=== PATIENT | male | born 1945 | race Caucasian/White ===

== ENCOUNTER → 2016-11-23 | Outpatient (CLI) | payer MEDICARE, OTHER ==
[2016-11-23 08:47] LABS: CHCM 33.4; HCT 41.4 % (39.0-53.0); HDW 2.24; HGB 13.7 gm/dL (13.0-17.5); MCHC 33.2 g/dL (31.0-37.0); MCV 99.3 fL (80.0-100.0); Mean Platelet Volume 8.2; RBC 4.17 m/uL (4.30-5.90); RDW 13.1 % (11.5-15.5); WBC 5.8 k/uL (3.8-10.6)
[2016-11-23 10:53] LABS: ALT 32 U/L (21-72); AST 28 U/L (17-59); Alkaline Phosphatase 82 U/L (38-126); Anion Gap 9 mmol/L; Bilirubin, Delta 0.3 mg/dL (0.0-0.2); Blood Urea Nitrogen 22 mg/dL (9-20); Carbon Dioxide 30 mmol/L (22-30); Chloride 102 mmol/L (98-107); Glucose 90 mg/dL (74-99); Non-African American GFR(MDRD) >60 (>60 ml/min/1.73 sqM); Potassium 4.5 mmol/L (3.5-5.1); Sodium 141 mmol/L (137-145); Total Bilirubin 0.5 mg/dL (0.2-1.3); Total Protein 7.5 g/dL (6.3-8.2)
== END | disposition home or self-care (01) ==
LOC: LABWHC1 08:16
PROVIDERS: ATTEND Psychiatry & Neurology Clinical Neurophysiology
DX: R56.9 Unspecified convulsions (principal); Z51.81 Encounter for therapeutic drug level monitoring; Z79.899 Other long term (current) drug therapy
CPT/HCPCS: 36415; 80048; 80076; 80185; 80188; 85027

== ENCOUNTER → 2017-02-25 | Outpatient (CLI) | payer MEDICARE, OTHER | END | disposition home or self-care (01) | LOC: LABWHC1 08:04 | PROVIDERS: ATTEND Family Medicine | DX: G40.909 Epilepsy, unspecified, not intractable, without status epilepticus (principal) | CPT/HCPCS: 36415; 80185; 80188 ==

== ENCOUNTER → 2017-05-24 | Outpatient (CLI) | payer MEDICARE, OTHER ==
[2017-05-24 09:14] LABS: CHCM 32.7; HCT 41.3 % (39.0-53.0); HDW 2.25; HGB 13.9 gm/dL (13.0-17.5); MCHC 33.6 g/dL (31.0-37.0); MCV 98.2 fL (80.0-100.0); Mean Platelet Volume 7.1; RBC 4.21 m/uL (4.30-5.90); RDW 13.2 % (11.5-15.5); WBC 6.7 k/uL (3.8-10.6)
[2017-05-24 09:19] LABS: ALT 31 U/L (21-72); AST 25 U/L (17-59); Alkaline Phosphatase 91 U/L (38-126); Anion Gap 8 mmol/L; Bilirubin, Delta 0.3 mg/dL (0.0-0.2); Blood Urea Nitrogen 20 mg/dL (9-20); Calcium 8.9 mg/dL (8.4-10.2); Carbon Dioxide 30 mmol/L (22-30); Chloride 102 mmol/L (98-107); Glucose 85 mg/dL (74-99); Non-African American GFR(MDRD) >60 (>60 ml/min/1.73 sqM); Potassium 4.3 mmol/L (3.5-5.1); Sodium 140 mmol/L (137-145); Total Bilirubin 0.5 mg/dL (0.2-1.3); Total Protein 7.3 g/dL (6.3-8.2)
== END ==
LOC: LABWHC1 08:26
PROVIDERS: ATTEND Psychiatry & Neurology Clinical Neurophysiology
DX: R56.9 Unspecified convulsions (principal); Z51.81 Encounter for therapeutic drug level monitoring
CPT/HCPCS: 36415; 80048; 80076; 80185; 85027

== ENCOUNTER → 2017-05-26 | Outpatient (CLI) | payer MEDICARE, OTHER ==
[2017-05-27 16:12] LABS: Mis test requested (Blood) MYSOLINE (PRIMIDONE)
== END | disposition home or self-care (01) ==
LOC: LABWHC1 08:29
PROVIDERS: ATTEND Psychiatry & Neurology Clinical Neurophysiology
DX: R56.9 Unspecified convulsions (principal); Z79.899 Other long term (current) drug therapy
CPT/HCPCS: 80188

== ENCOUNTER → 2017-08-05 | Outpatient (CLI) | payer MEDICARE, OTHER | END | disposition home or self-care (01) | LOC: LABWHC1 08:19 | PROVIDERS: ATTEND Family Medicine | DX: R56.9 Unspecified convulsions (principal) | CPT/HCPCS: 36415; 80184; 80185; 80188 ==

== ENCOUNTER → 2017-11-25 | Outpatient (CLI) | payer MEDICARE, OTHER ==
[2017-11-25 09:02] LABS: HCT 40.5 % (39.0-53.0); HGB 13.7 gm/dL (13.0-17.5); MCH 32.2 pg (25.0-35.0); MCHC 33.8 g/dL (31.0-37.0); MCV 95.2 fL (80.0-100.0); Mean Platelet Volume 7.8; Platelet Count 198 k/uL (150-450); RBC 4.25 m/uL (4.30-5.90); RDW 13.3 % (11.5-15.5); WBC 6.5 k/uL (3.8-10.6)
[2017-11-25 09:23] LABS: ALT 17 U/L (21-72); AST 25 U/L (17-59); Albumin 3.8 g/dL (3.5-5.0); Alkaline Phosphatase 86 U/L (38-126); Anion Gap 8 mmol/L; Bilirubin, Delta 0.3 mg/dL (0.0-0.2); Blood Urea Nitrogen 20 mg/dL (9-20); Calcium 9.3 mg/dL (8.4-10.2); Carbon Dioxide 33 mmol/L (22-30); Chloride 102 mmol/L (98-107); Glucose 82 mg/dL (74-99); Phenytoin (Dilantin) 9.5 ug/mL; Potassium 5.5 mmol/L (3.5-5.1); Sodium 143 mmol/L (137-145); Total Bilirubin 0.3 mg/dL (0.2-1.3); Total Protein 7.4 g/dL (6.3-8.2)
== END | disposition home or self-care (01) ==
LOC: LABWHC1 08:09
PROVIDERS: ATTEND Psychiatry & Neurology Clinical Neurophysiology
DX: D64.9 Anemia, unspecified (principal); R56.9 Unspecified convulsions
CPT/HCPCS: 36415; 80048; 80076; 80185; 80188; 85027

== ENCOUNTER → 2018-02-16 | Outpatient (CLI) | payer MEDICARE, OTHER ==
[2018-02-17 14:52] LABS: Primidone 5.7 ug/mL (4-12)
== END | disposition home or self-care (01) ==
LOC: LABWHC1 08:07
PROVIDERS: ATTEND Family Medicine
DX: G40.909 Epilepsy, unspecified, not intractable, without status epilepticus (principal)
CPT/HCPCS: 36415; 80184; 80185; 80186; 80188

== ENCOUNTER → 2018-08-15 | Outpatient (CLI) | payer MEDICARE, OTHER | END | disposition home or self-care (01) | LOC: LABWHC1 08:26 | PROVIDERS: ATTEND Family Medicine | DX: G40.909 Epilepsy, unspecified, not intractable, without status epilepticus (principal) | CPT/HCPCS: 36415; 80184; 80185; 80188 ==

== ENCOUNTER → 2018-11-24 | Outpatient (CLI) | payer MEDICARE, OTHER ==
[2018-11-24 09:05] LABS: Basophils % (A) 0 %; Eosinophils # (A) 0.6 k/uL (0-0.7); Eosinophils % (A) 7 %; HCT 45.8 % (39.0-53.0); HGB 14.4 gm/dL (13.0-17.5); Lymphocytes # (A) 1.4 k/uL (1.0-4.8); Lymphocytes % (A) 16 %; MCH 30.6 pg (25.0-35.0); MCHC 31.5 g/dL (31.0-37.0); MCV 97.3 fL (80.0-100.0); Mean Platelet Volume 7.5; Monocytes # (A) 0.5 k/uL (0-1.0); Monocytes % (A) 6 %; Neutrophils % (A) 69 %; Platelet Count 186 k/uL (150-450); RBC 4.71 m/uL (4.30-5.90); RDW 13.3 % (11.5-15.5); WBC 8.7 k/uL (3.8-10.6)
[2018-11-24 17:21] LABS: ALT 20 U/L (10-49); AST 31 U/L (14-35); Alkaline Phosphatase 87 U/L (41-126); Bilirubin, Conjugated <0.20 mg/dL (0.20-0.40); Calcium 8.9 mg/dL (8.7-10.3); Carbon Dioxide 29.8 mmol/L (21.6-31.8); Chloride 101 mmol/L (96-109); Glucose 94 mg/dL (70-110); Potassium 4.9 mmol/L (3.5-5.5); Sodium 140 mmol/L (135-145); Total Bilirubin 0.4 mg/dL (0.2-1.2); Total Protein 6.9 g/dL (6.2-8.2)
[2018-11-24 18:37] LABS: Phenytoin (Dilantin) 9.2 ug/mL (10.0-20.0)
[2018-11-25 07:12] LABS: Phenytoin (Dilantin) Free 0.9 ug/mL (0.8-2.0)
[2018-11-26 14:10] LABS: Primidone 6.3 ug/mL (4-12)
== END ==
LOC: LABWHC1 08:25
PROVIDERS: ATTEND Family Medicine
DX: G40.909 Epilepsy, unspecified, not intractable, without status epilepticus (principal); G40.419 Other generalized epilepsy and epileptic syndromes, intractable, without status epilepticus; Z51.81 Encounter for therapeutic drug level monitoring; D64.9 Anemia, unspecified
CPT/HCPCS: 36415; 80053; 80184; 80185; 80186; 80188; 82248; 85025

== ENCOUNTER → 2019-02-13 | Outpatient (CLI) | payer MEDICARE, OTHER | END | disposition home or self-care (01) | LOC: LABWHC1 08:31 | PROVIDERS: ATTEND Family Medicine | DX: G40.909 Epilepsy, unspecified, not intractable, without status epilepticus (principal) | CPT/HCPCS: 36415; 80184; 80188 ==

== ENCOUNTER → 2019-05-25 | Outpatient (CLI) | payer MEDICARE, OTHER ==
[2019-05-25 09:11] LABS: HGB 13.4 gm/dL (13.0-17.5); MCH 31.2 pg (25.0-35.0); MCHC 32.6 g/dL (31.0-37.0); Mean Platelet Volume 6.6; Platelet Count 179 k/uL (150-450); RBC 4.28 m/uL (4.30-5.90); WBC 6.1 k/uL (3.8-10.6)
[2019-05-25 17:36] LABS: African American GFR (CKD) 97.9 (60.0-200.0); Albumin 3.8 g/dL (3.80-4.90); Albumin/Globulin Ratio 1.23 (1.60-3.17); Anion Gap 11.6 mmol/L (4.00-12.00); BUN/Creat Ratio 15.56 Ratio (12.00-20.00); Calcium 8.8 mg/dL (8.7-10.3); Carbon Dioxide 26.4 mmol/L (21.6-31.8); Globulin 3.1 g/dL (1.6-3.3); Potassium 4.2 mmol/L (3.5-5.5); Total Bilirubin 0.2 mg/dL (0.2-1.2); Total Protein 6.9 g/dL (6.2-8.2)
== END | disposition home or self-care (01) ==
LOC: LABWHC1 08:15
PROVIDERS: ATTEND Psychiatry & Neurology Clinical Neurophysiology
DX: D64.9 Anemia, unspecified (principal); G40.419 Other generalized epilepsy and epileptic syndromes, intractable, without status epilepticus; Z51.81 Encounter for therapeutic drug level monitoring
CPT/HCPCS: 36415; 80053; 80185; 80188; 85027

== ENCOUNTER → 2019-08-14 | Outpatient (CLI) | payer MEDICARE, OTHER ==
[2019-08-16 05:55] LABS: Phenytoin (Dilantin) Free 1.2 ug/mL (0.8-2.0)
[2019-08-17 14:44] LABS: Primidone 5.1 ug/mL (4-12)
== END | disposition home or self-care (01) ==
LOC: LABWHC1 09:01
PROVIDERS: ATTEND Family Medicine
DX: G40.909 Epilepsy, unspecified, not intractable, without status epilepticus (principal)
CPT/HCPCS: 36415; 80184; 80185; 80186; 80188

== ENCOUNTER → 2019-11-23 | Outpatient (CLI) | payer MEDICARE, OTHER ==
[2019-11-23 09:48] LABS: HCT 44.8 % (39.0-53.0); HGB 14.7 gm/dL (13.0-17.5); MCH 31.3 pg (25.0-35.0); MCHC 32.7 g/dL (31.0-37.0); MCV 95.6 fL (80.0-100.0); Mean Platelet Volume 7.9; Platelet Count 226 k/uL (150-450); RBC 4.69 m/uL (4.30-5.90); WBC 8.3 k/uL (3.8-10.6)
[2019-11-23 15:58] LABS: African American GFR (CKD) 97.2 (60.0-200.0); Albumin 4.2 g/dL (3.80-4.90); Albumin/Globulin Ratio 1.24 (1.60-3.17); Anion Gap 10.8 mmol/L (4.00-12.00); BUN/Creat Ratio 24.44 Ratio (12.00-20.00); Calcium 9.3 mg/dL (8.7-10.3); Carbon Dioxide 29.2 mmol/L (21.6-31.8); Globulin 3.4 g/dL (1.6-3.3); Non-African American GFR(CKD) 83.8 (60.0-200.0); Potassium 4.2 mmol/L (3.5-5.5); Total Bilirubin 0.3 mg/dL (0.3-1.2); Total Protein 7.6 g/dL (6.2-8.2)
[2019-11-23 20:23] LABS: Phenytoin (Dilantin) 9.4 ug/mL (10.0-20.0)
== END | disposition home or self-care (01) ==
LOC: LABWHC1 09:04
PROVIDERS: ATTEND Psychiatry & Neurology Clinical Neurophysiology
DX: G40.419 Other generalized epilepsy and epileptic syndromes, intractable, without status epilepticus (principal); D64.9 Anemia, unspecified; Z51.81 Encounter for therapeutic drug level monitoring
CPT/HCPCS: 36415; 80053; 80185; 80188; 85027

== ENCOUNTER → 2020-02-15 | Outpatient (CLI) | payer MEDICARE, OTHER ==
[2020-02-21 08:56] LABS: Primidone 6.1 ug/mL (4-12)
== END | disposition home or self-care (01) ==
LOC: LABWHC1 08:53
PROVIDERS: ATTEND Family Medicine
DX: G40.909 Epilepsy, unspecified, not intractable, without status epilepticus (principal)
CPT/HCPCS: 36415; 80184; 80185; 80186; 80188

== ENCOUNTER → 2020-05-23 | Outpatient (CLI) | payer MEDICARE, OTHER ==
[2020-05-23 09:43] LABS: Basophils # (A) 0.1 k/uL (0-0.2); Basophils % (A) 1 %; Eosinophils % (A) 14 %; HCT 48.1 % (39.0-53.0); HGB 15.1 gm/dL (13.0-17.5); Lymphocytes # (A) 2.2 k/uL (1.0-4.8); Lymphocytes % (A) 30 %; MCH 30.7 pg (25.0-35.0); MCHC 31.4 g/dL (31.0-37.0); MCV 97.9 fL (80.0-100.0); Mean Platelet Volume 7.6; Monocytes # (A) 0.6 k/uL (0-1.0); Monocytes % (A) 8 %; Neutrophils # (A) 3.4 k/uL (1.3-7.7); Neutrophils % (A) 45 %; Platelet Count 223 k/uL (150-450); RBC 4.91 m/uL (4.30-5.90); RDW 12.8 % (11.5-15.5); WBC 7.5 k/uL (3.8-10.6)
[2020-05-23 19:24] LABS: African American GFR (CKD) 97.2 (60.0-200.0); Albumin 4.1 g/dL (3.80-4.90); Albumin/Globulin Ratio 1.46 (1.60-3.17); Anion Gap 6.2 mmol/L (4.00-12.00); BUN/Creat Ratio 15.56 Ratio (12.00-20.00); Carbon Dioxide 29.8 mmol/L (21.6-31.8); Globulin 2.8 g/dL (1.6-3.3); Non-African American GFR(CKD) 83.8 (60.0-200.0); Potassium 4.4 mmol/L (3.5-5.5); Total Bilirubin 0.2 mg/dL (0.2-1.2); Total Protein 6.9 g/dL (6.2-8.2)
== END | disposition home or self-care (01) ==
LOC: LABWHC1 08:38
PROVIDERS: ATTEND Psychiatry & Neurology Clinical Neurophysiology
DX: D50.9 Iron deficiency anemia, unspecified (principal); G40.89 Other seizures; R94.5 Abnormal results of liver function studies; R94.4 Abnormal results of kidney function studies; Z51.81 Encounter for therapeutic drug level monitoring
CPT/HCPCS: 36415; 80053; 80185; 80188; 85025

== ENCOUNTER → 2020-08-16 | Outpatient (CLI) | payer MEDICARE, OTHER ==
[2020-08-16 17:08] LABS: ALT 16 U/L (10-49); AST 26 U/L (14-35); Albumin/Globulin Ratio 1.29 (1.60-3.17); Alkaline Phosphatase 98 U/L (41-126); Bilirubin, Conjugated <0.20 mg/dL (0.20-0.40); Globulin 3.1 g/dL (1.6-3.3); Total Bilirubin 0.2 mg/dL (0.2-1.2); Total Protein 7.1 g/dL (6.2-8.2)
[2020-08-16 17:22] LABS: Phenytoin (Dilantin) 10.5 ug/mL (10.0-20.0)
[2020-08-17 15:04] LABS: Primidone 6.4 ug/mL (4-12)
== END | disposition home or self-care (01) ==
LOC: LABWHC1 08:22
PROVIDERS: ATTEND Family Medicine
DX: G40.909 Epilepsy, unspecified, not intractable, without status epilepticus (principal)
CPT/HCPCS: 36415; 80076; 80184; 80185; 80188

== ENCOUNTER → 2020-11-21 | Outpatient (CLI) | payer MEDICARE, OTHER ==
[2020-11-21 15:12] LABS: HCT 44.2 % (39.6-50.0); HGB 14.2 g/dL (13.0-17.0); MCH 31.3 pg (27.0-32.0); MCHC 32.1 g/dL (32.0-37.0); MCV 97.4 fL (80.0-97.0); Mean Platelet Volume 10.3 fL (9.5-12.2); Platelet Count 198 X 10*3/uL (140-440); RBC 4.54 X 10*6/uL (4.40-5.60); RDW 13.2 % (11.5-14.5); WBC 6.67 X 10*3/uL (4.50-10.00)
[2020-11-21 16:14] LABS: African American GFR (CKD) 96.5 (60.0-200.0); Albumin 4.1 g/dL (3.80-4.90); Albumin/Globulin Ratio 1.28 (1.60-3.17); Anion Gap 9.9 mmol/L (4.00-12.00); BUN/Creat Ratio 17.78 Ratio (12.00-20.00); Calcium 9.4 mg/dL (8.7-10.3); Carbon Dioxide 27.1 mmol/L (21.6-31.8); Globulin 3.2 g/dL (1.6-3.3); Non-African American GFR(CKD) 83.3 (60.0-200.0); Potassium 4.6 mmol/L (3.5-5.5); Total Bilirubin 0.2 mg/dL (0.3-1.2); Total Protein 7.3 g/dL (6.2-8.2)
[2020-11-22 02:49] LABS: Phenytoin (Dilantin) 11.6 ug/mL (10.0-20.0)
== END | disposition home or self-care (01) ==
LOC: LABWHC1 09:08
PROVIDERS: ATTEND Psychiatry & Neurology Clinical Neurophysiology
DX: G40.419 Other generalized epilepsy and epileptic syndromes, intractable, without status epilepticus (principal); D64.9 Anemia, unspecified; Z51.81 Encounter for therapeutic drug level monitoring
CPT/HCPCS: 36415; 80053; 80185; 80188; 85027

== ENCOUNTER 2020-12-20 11:56 | Inpatient (IN) | payer MEDICARE, OTHER ==
[2020-12-20] MEDS ORDERED: ALBUTEROL HFA INHALER INHALATION STA (13:57)
--- NOTE | 2020-12-20 14:00 | ED ---
General Adult HPI - General Source: patient, family, RN notes reviewed Mode of arrival: ambulatory Limitations: altered mental status, physical limitation <Osmani Wu - Last Filed: 12/20/20 14:30> <Jeff Vera - Last Filed: 12/20/20 17:20> - General Chief complaint: Shortness of Breath Stated complaint: low oxygen Time Seen by Provider: 12/20/20 13:21 - History of Present Illness Initial comments: Patient is a pleasant 75-year-old male presenting to the emergency Department with cough and dyspnea. Onset of symptoms was 2-3 days ago. Patient does have history of similar symptoms previously associated with pneumonia. Patient is a poor historian and history is taken from sister who is also caterpillar tractor operator. No reported fevers. Patient is eating and drinking normally. Patient is unable to provide significant history. Patient does have history of anoxia and seizures. (Osmani Wu) - Related Data Allergies Allergy/AdvReac Type Severity Reaction Status Date / Time azithromycin [From Zithromax] Allergy Unknown Verified 12/20/20 16:12 codeine Allergy Unknown Verified 12/20/20 16:12 Review of Systems ROS Other: All systems not noted in ROS Statement are negative. Limitations: ROS unobtainable due to patients medical condition Constitutional: Denies: fever Respiratory: Reports: cough, dyspnea <Osmani Wu - Last Filed: 12/20/20 14:30> ROS Other: All systems not noted in ROS Statement are negative. <Jeff Vera - Last Filed: 12/20/20 17:20> ROS Statement: Those systems with pertinent positive or pertinent negative responses have been documented in the HPI. Past Medical History Additional Past Medical History / Comment(s): encephalitis. mental impairment History of Any Multi-Drug Resistant Organisms: None Reported Past Surgical History: Cholecystectomy Past Psychological History: No Psychological Hx Reported Smoking Status: Current every day smoker Past Alcohol Use History: None Reported Past Drug Use History: None Reported <Osmani Wu - Last Filed: 12/20/20 14:30> General Exam Limitations: altered mental status, physical limitation General appearance: alert, in no apparent distress Eye exam: Present: normal appearance Neck exam: Present: normal inspection Respiratory exam: Present: rales Cardiovascular Exam: Present: regular rate, normal rhythm GI/Abdominal exam: Present: soft. Absent: tenderness Neurological exam: Present: alert Psychiatric exam: Present: normal affect, normal mood Skin exam: Present: normal color <Osmani Wu - Last Filed: 12/20/20 14:30> Course Vital Signs 12/20/20 12/20/20 12/20/20 12:27 14:50 17:02 Temperature 98.0 F Pulse Rate 67 72 Respiratory 20 22 18 Rate Blood Pressure 156/93 141/80 O2 Sat by Pulse 91 L 95 Oximetry EKG Findings - EKG Comments: EKG Findings:: Sinus bradycardia 59. WA 180. QRS 96. QT 434. QTC 429. Normal axis. Normal QRS. No acute ST change. <Osmani Wu - Last Filed: 12/20/20 14:30> Medical Decision Making - Lab Data Result diagrams: 12/20/20 14:49 12/20/20 14:49 <Jeff Vera - Last Filed: 12/20/20 17:20> - Medical Decision Making Patient's care was signed out at shift change awaiting workup. X-ray showing concern for possible coronavirus pneumonia although the patient has been vaccinated. His coronavirus test is negative. He has a normal CBC. CMP showing a L of a CO2 of 31. He does have an elevated troponin 0.065 with a normal BNP. CT angiography is performed to rule out pulmonary embolism which is negative. The patient is unable to contribute significantly to history but does deny chest pain is EKG is sinus bradycardia without ST segment elevation. Given the findings on x-ray a single dose of antibiotics is administered in the emergency department awaiting further evaluation and treatment. He will be admitted to Dr. Ni with cardiology on consult. (Jeff Vera) - Lab Data Lab Results 12/20/20 12/20/20 12/20/20 Range/Units 14:49 14:49 14:49 WBC 6.5 (3.8-10.6) k/uL RBC 4.53 (4.30-5.90) m/uL Hgb 14.7 (13.0-17.5) gm/dL Hct 42.7 (39.0-53.0) % MCV 94.3 (80.0-100.0) fL MCH 32.4 (25.0-35.0) pg MCHC 34.4 (31.0-37.0) g/dL RDW 13.0 (11.5-15.5) % Plt Count 193 (150-450) k/uL MPV 7.4 Neutrophils % (Manual) 27 % Band Neuts % (Manual) 1 % Lymphocytes % (Manual) 49 % Monocytes % (Manual) 13 % Eosinophils % (Manual) 10 % Neutrophils # (Manual) 1.80 (1.3-7.7) k/uL Lymphocytes # (Manual) 3.19 (1.0-4.8) k/uL Monocytes # (Manual) 0.85 (0-1.0) k/uL Eosinophils # (Manual) 0.65 (0-0.7) k/uL Nucleated RBCs 0 (0-0) /100 WBC Manual Slide Review Performed PT 10.3 (9.0-12.0) sec INR 1.0 (<1.2) APTT 22.8 (22.0-30.0) sec Sodium 137 (137-145) mmol/L Potassium 4.6 (3.5-5.1) mmol/L Chloride 97 L (98-107) mmol/L Carbon Dioxide 34 H (22-30) mmol/L Anion Gap 6 mmol/L BUN 17 (9-20) mg/dL Creatinine 0.85 (0.66-1.25) mg/dL Est GFR (CKD-EPI)AfAm >90 (>60 ml/min/1.73 sqM) Est GFR (CKD-EPI)NonAf 85 (>60 ml/min/1.73 sqM) Glucose 87 (74-99) mg/dL Plasma Lactic Acid Jay (0.7-2.0) mmol/L Calcium 9.0 (8.4-10.2) mg/dL Magnesium 1.9 (1.6-2.3) mg/dL Total Bilirubin 0.2 (0.2-1.3) mg/dL AST 34 (17-59) U/L ALT 19 (4-49) U/L Alkaline Phosphatase 103 (38-126) U/L Lactate Dehydrogenase 568 (313-618) U/L Troponin I (0.000-0.034) ng/mL C-Reactive Protein 41.6 H (<10.0) mg/L NT-Pro-B Natriuret Pep pg/mL Total Protein 8.0 (6.3-8.2) g/dL Albumin 4.0 (3.5-5.0) g/dL Coronavirus (PCR) (Not Detectd) 12/20/20 12/20/20 12/20/20 Range/Units 14:49 14:49 14:49 WBC (3.8-10.6) k/uL RBC (4.30-5.90) m/uL Hgb (13.0-17.5) gm/dL Hct (39.0-53.0) % MCV (80.0-100.0) fL MCH (25.0-35.0) pg MCHC (31.0-37.0) g/dL RDW (11.5-15.5) % Plt Count (150-450) k/uL MPV Neutrophils % (Manual) % Band Neuts % (Manual) % Lymphocytes % (Manual) % Monocytes % (Manual) % Eosinophils % (Manual) % Neutrophils # (Manual) (1.3-7.7) k/uL Lymphocytes # (Manual) (1.0-4.8) k/uL Monocytes # (Manual) (0-1.0) k/uL Eosinophils # (Manual) (0-0.7) k/uL Nucleated RBCs (0-0) /100 WBC Manual Slide Review PT (9.0-12.0) sec INR (<1.2) APTT (22.0-30.0) sec Sodium (137-145) mmol/L Potassium (3.5-5.1) mmol/L Chloride (98-107) mmol/L Carbon Dioxide (22-30) mmol/L Anion Gap mmol/L BUN (9-20) mg/dL Creatinine (0.66-1.25) mg/dL Est GFR (CKD-EPI)AfAm (>60 ml/min/1.73 sqM) Est GFR (CKD-EPI)NonAf (>60 ml/min/1.73 sqM) Glucose (74-99) mg/dL Plasma Lactic Acid Jay 0.9 (0.7-2.0) mmol/L Calcium (8.4-10.2) mg/dL Magnesium (1.6-2.3) mg/dL Total Bilirubin (0.2-1.3) mg/dL AST (17-59) U/L ALT (4-49) U/L Alkaline Phosphatase (38-126) U/L Lactate Dehydrogenase (313-618) U/L Troponin I 0.065 H* (0.000-0.034) ng/mL C-Reactive Protein (<10.0) mg/L NT-Pro-B Natriuret Pep 166 pg/mL Total Protein (6.3-8.2) g/dL Albumin (3.5-5.0) g/dL Coronavirus (PCR) (Not Detectd) 12/20/20 Range/Units 14:49 WBC (3.8-10.6) k/uL RBC (4.30-5.90) m/uL Hgb (13.0-17.5) gm/dL Hct (39.0-53.0) % MCV (80.0-100.0) fL MCH (25.0-35.0) pg MCHC (31.0-37.0) g/dL RDW (11.5-15.5) % Plt Count (150-450) k/uL MPV Neutrophils % (Manual) % Band Neuts % (Manual) % Lymphocytes % (Manual) % Monocytes % (Manual) % Eosinophils % (Manual) % Neutrophils # (Manual) (1.3-7.7) k/uL Lymphocytes # (Manual) (1.0-4.8) k/uL Monocytes # (Manual) (0-1.0) k/uL Eosinophils # (Manual) (0-0.7) k/uL Nucleated RBCs (0-0) /100 WBC Manual Slide Review PT (9.0-12.0) sec INR (<1.2) APTT (22.0-30.0) sec Sodium (137-145) mmol/L Potassium (3.5-5.1) mmol/L Chloride (98-107) mmol/L Carbon Dioxide (22-30) mmol/L Anion Gap mmol/L BUN (9-20) mg/dL Creatinine (0.66-1.25) mg/dL Est GFR (CKD-EPI)AfAm (>60 ml/min/1.73 sqM) Est GFR (CKD-EPI)NonAf (>60 ml/min/1.73 sqM) Glucose (74-99) mg/dL Plasma Lactic Acid Jay (0.7-2.0) mmol/L Calcium (8.4-10.2) mg/dL Magnesium (1.6-2.3) mg/dL Total Bilirubin (0.2-1.3) mg/dL AST (17-59) U/L ALT (4-49) U/L Alkaline Phosphatase (38-126) U/L Lactate Dehydrogenase (313-618) U/L Troponin I (0.000-0.034) ng/mL C-Reactive Protein (<10.0) mg/L NT-Pro-B Natriuret Pep pg/mL Total Protein (6.3-8.2) g/dL Albumin (3.5-5.0) g/dL Coronavirus (PCR) Not Detected (Not Detectd) Disposition <Osmani Wu - Last Filed: 12/20/20 14:30> Is patient prescribed a controlled substance at d/c from ED?: No Decision to Admit Reason: Admit from EC Decision Date: 12/20/20 Decision Time: 17:19 <Jeff Vera - Last Filed: 12/20/20 17:20> Clinical Impression: Community acquired pneumonia, NSTEMI (non-ST elevated myocardial infarction) Disposition: ADMITTED IP TO THIS HOSP Condition: Stable Referrals: Jd Feliz MD [Primary Care Provider] - 1-2 days
[2020-12-20 15:00] LABS: HCT 42.7 % (39.0-53.0); HGB 14.7 gm/dL (13.0-17.5); MCH 32.4 pg (25.0-35.0); MCHC 34.4 g/dL (31.0-37.0); MCV 94.3 fL (80.0-100.0); Mean Platelet Volume 7.4; Platelet Count 193 k/uL (150-450); RBC 4.53 m/uL (4.30-5.90); WBC 6.5 k/uL (3.8-10.6)
[2020-12-20 15:14] LABS: ALT 19 U/L (4-49); AST 34 U/L (17-59); African American GFR (CKD) >90 (>60 ml/min/1.73 sqM); Alkaline Phosphatase 103 U/L (38-126); Anion Gap 6 mmol/L; Blood Urea Nitrogen 17 mg/dL (9-20); C Reactive Protein 41.6 mg/L (<10.0); Carbon Dioxide 34 mmol/L (22-30); Chloride 97 mmol/L (98-107); Glucose 87 mg/dL (74-99); LDH 568 U/L (313-618); Magnesium 1.9 mg/dL (1.6-2.3); Non-African American GFR(CKD) 85 (>60 ml/min/1.73 sqM); Potassium 4.6 mmol/L (3.5-5.1); Sodium 137 mmol/L (137-145); Total Bilirubin 0.2 mg/dL (0.2-1.3)
[2020-12-20 15:15] LABS: Partial Thromboplastin Time 22.8 sec (22.0-30.0); Prothrombin Time 10.3 sec (9.0-12.0)
--- NOTE | 2020-12-20 15:17 | XR ---
EXAMINATION TYPE: XR chest 1V portable DATE OF EXAM: 12/20/2020 COMPARISON: Chest x-ray November 18, 2008 HISTORY: Hypoxia and cough TECHNIQUE: Single frontal view of the chest is obtained. FINDINGS: There is mild cardiomegaly. There are chronic parenchymal changes with areas of increased opacity in the periphery of the bilateral lungs and areas of increased opacity in the bases. The oss eous structures are demineralized. IMPRESSION: Chronic changes and cardiomegaly with new bilateral multifocal opacities consistent with covid-19 infection.
[2020-12-20 15:39] LABS: Band Neutrophils % 1 %; Eosinophils # (M) 0.65 k/uL (0-0.7); Lymphocytes # (M) 3.19 k/uL (1.0-4.8); Monocytes # (M) 0.85 k/uL (0-1.0); Neutrophils % (M) 27 %; Nucleated Red Blood Cells 0 /100 WBC (0-0); Total Cells Counted 100
[2020-12-20] MEDS ORDERED: ASPIRIN 325 MG TAB PO STA (16:09)
--- NOTE | 2020-12-20 17:02 | CT ---
EXAMINATION TYPE: CT angio chest DATE OF EXAM: 12/20/2020 COMPARISON: None HISTORY: Shortness of breath CT DLP: 323.6 mGycm Automated exposure control for dose reduction was used. CONTRAST: Performed with IV Contrast, patient injected with 100. 29 wasted mL of Isovue 370. There are 3-D post processed images. There is some patchy atelectasis at both lung bases and more on the right side. There is no pleural e ffusion. There is no pericardial effusion. Heart is slightly enlarged. There are bilateral bronchial lymph nodes which measure up to 1.5 cm. There are mediastinal lymph nodes also measuring up to 1 cm. Thoracic aorta shows no aneurysm or dissection. There is no evidence of filling defect in the pulmonary arteries. There is some degenerative spurring in the thoracic spine. There is no compression fracture. Sternum is intact. The ribs are intact. IMPRESSION: No evidence of pulmonary embolism. Bilateral lower lobe mild basilar atelectasis and interstitial den sity. Bilateral bronchial adenopathy that is more on the right side.
[2020-12-20] MEDS ORDERED: HEPARIN SODIUM 1,000 UN/ML (10ML VL) IV PRN (17:09)
[2020-12-20] MEDS ORDERED: LEVOFLOXACIN 500MG-D5W PMX 500 MG in DEXTROSE/WATER 1 100ML.BAG IVPB STA (17:09)
[2020-12-20] MEDS ORDERED: HEPARIN SODIUM 1,000 UN/ML (10ML VL) IV ONE (17:09)
[2020-12-20] MEDS ORDERED: NALOXONE 0.4 MG/ML 1 ML VIAL IV PRN (17:20)
[2020-12-20] MEDS ORDERED: ACETAMINOPHEN TAB 325 MG TAB PO PRN (17:20)
[2020-12-20] MEDS: HEPARIN SOD,PORK IN 0.45% NACL 25,000 UNIT in 0.45% NACL 1 250ML.BAG IV SCH (18:09)
[2020-12-20] MEDS ORDERED: DICLOFENAC SODIUM GEL 100 GM TUBE TOPICAL PRN (21:12)
[2020-12-20] MEDS: CHOLECALCIFEROL 25 MCG (1000 IU) TABLET PO SCH (22:19)
[2020-12-20] MEDS: METOPROLOL TARTRATE 50 MG TAB PO SCH (22:19)
[2020-12-20] MEDS: PHENYTOIN SODIUM EXTENDED 100 MG CAP PO SCH (22:20)
[2020-12-20] MEDS: clonazePAM 0.5 MG TAB PO SCH (22:20)
[2020-12-20] MEDS: LORATADINE 10 MG TAB PO SCH (22:20)
[2020-12-20] MEDS: PRIMIDONE 250 MG TAB PO SCH (22:21)
[2020-12-21 00:25] LABS: Glucose,Whole Blood 140 mg/dL (75-99)
[2020-12-21] MEDS: PHENYTOIN SODIUM EXTENDED 100 MG CAP PO SCH ×2 (06:53→22:01)
[2020-12-21] MEDS: NIFEdipine XL 30 MG TAB.ER.24 PO SCH (06:53)
[2020-12-21] MEDS: polyethylene glycoL 3350 17 GM POWD.PACK PO SCH (06:54)
[2020-12-21] MEDS: PANTOPRAZOLE 40 MG TABLET PO SCH (06:54)
[2020-12-21] MEDS: METOPROLOL TARTRATE 50 MG TAB PO SCH ×2 (08:13→22:01)
[2020-12-21] MEDS: PRIMIDONE 50 MG TAB PO SCH (08:13)
[2020-12-21] MEDS: clonazePAM 0.5 MG TAB PO SCH ×2 (08:14→22:01)
[2020-12-21] MEDS: CLOBETASOL PROP 0.05% CR 15GM TOPICAL SCH ×2 (08:16→22:02)
[2020-12-21] MEDS: levETIRAcetam 250 MG TAB PO SCH ×2 (08:16→17:31)
[2020-12-21] MEDS ORDERED: NON FORMULARY DRUG (Glucosam/Chon-Msm1/C/Mang/Bosw [Glucosamine-Chondroitin Tablet] 1 EACH PO SCH (09:00)
--- NOTE | 2020-12-21 09:01 | P.CRDCN ---
History of Present Illness History of present illness: HISTORY OF PRESENTING ILLNESS This is a pleasant 75-year-old male past medical history significant for hypertension, dyslipidemia, myocardial infarction (date/year unknown) coronary artery disease s/p stent (details unknown), peripheral vascular disease, seizure (July 2020) . 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 He used to see Dr. Cowan. We have been asked to see in consultation for elevated troponin. Patient is seen and examined at bedside. Alert, in no apparent distress. Able to tell me he is in the hospital. Patient is a poor historian, unable to communicate complaints. Spoke to patient's sister, who is his legal gaurdian for more information. She states that yesterday, she noticed the patient's breathing becoming more labored and appeared short of breath. She has a pulse ox at home and said it read around 79%. She decided to bring her brother to the emergency department. She denies her brother every stating he had chest pain, palpitations, diaphoresis, nausea or lightheadedness. She states he lives at an assisted living. He did recieve both Moderna covid vaccines (09/27/20 and 10/26/20). She does state he had an AR with stenting in the past, unaware of what date/year. Laboratory data reviewed, troponin 0.065-->0.061-->0.048, CBC unremarkable, Glucose 87, Sodum 137, K 4.6, Scr 0.85, BUN 17, Mag 1.9, BNP 166, covid-19 negative, CRP elevated Current home cardiac medications include Keppra, Nifedipine 30mg daily, metoprolol tartrate 100mg BID, Aspirin 81mg daily . DIAGNOSTICS EKG reveals sinus mechanism HR 59, No significant ST-T wave abnormalities Telemetry tracings indicate sinus mechanism HR 60-70s Chest xray new bilateral multifocal opacities CT chest- Negative for PE. Bilateral lower love mild basilar density, Bilateral bronchial adenopathy greater on the right side REVIEW OF SYSTEMS At the time of my exam: Patient unable to state complaints/concerns, Shakes his head no when asking review of systems CONSTITUTIONAL: Denies fever or chills. CARDIOVASCULAR: Denies chest pain, shortness of breath, orthopnea, PND or palpitations. RESPIRATORY: Denies cough. GASTROINTESTINAL: Denies abdominal pain, diarrhea, constipation, nausea or vomiting. MUSCULOSKELETAL: Denies myalgias. NEUROLOGIC: Denies numbness, tingling, headacbe or weakness. ENDOCRINE: Denies fatigue, weight change, polydipsia or polyurina. GENITOURINARY: Denies burning, hematuria or urgency with micturation. HEMATOLOGIC: Denies history of anemia or bleeding. PHYSICAL EXAMINATION Blood pressure 128/75 heart rate 63 afebrile and maintaining oxygen saturation 9 3% on 4 nasal cannula. CONSTITUTIONAL: No apparent distress. HEENT: Head is normocephalic. Pupils are equal, round. Sclerae anicteric. Mucous membranes of the mouth are moist. No JVD. No carotid bruit. CHEST EXAMINATION: Lungs are diminished bilateral bases to auscultation. No chest wall tenderness is noted on palpation or with deep breathing. HEART EXAMINATION: Regular rate and rhythm. S1, S2 heard. No murmurs, gallops or rub. ABDOMEN: Soft, nontender. Positive bowel sounds. EXTREMITIES: 2+ peripheral pulses, no lower extremity edema and no calf tenderness. SKIN: pale, some ecchymosis on bilateral arms NEUROLOGIC EXAMINATION: Patient is awake, alert, oriented x 1. ASSESSMENT Mildly elevated troponin- most likely related to a type II event related to patient's pneumonia, EKG with no evidence of ischemia, patient without any chest pain History of AR with prior stenting- details unknown Coronary artery disease Peripheral vascular disease Pneumonia Hypertension PLAN At this time we will proceed with conservative treatment and treat the patient medically Obtain 2D echocardiogram and doppler study to assess cardiac structure and function. Continue heparin drip for another 24 hours Will add statin Continue aspirin Continue metoprolol tartrate 100mg BID and nifedipine 30mg daily Continue to monitor renal function and electrolytes Nurse Practitioner note has been reviewed, I agree with a documented findings and plan of care. Patient was seen and examined. Past Medical History Past Medical History: Deep Vein Thrombosis (DVT), GERD/Reflux, Hypertension, Memory Impairment, Myocardial Infarction (AR), Neurologic Disorder, Oste oarthritis (OA), Pneumonia, Seizure Disorder, Skin Disorder Additional Past Medical History / Comment(s): encephalitis. mental impairment. 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 Myocardial Infarction Date:: 2004 History of Any Multi-Drug Resistant Organisms: None Reported Past Surgical History: Appendectomy, Cholecystectomy Past Anesthesia/Blood Transfusion Reactions: No Reported Reaction Past Psychological History: No Psychological Hx Reported Smoking Status: Former smoker Past Alcohol Use History: None Reported Past Drug Use History: None Reported - Past Family History Mother Family Medical History: Cancer Father Family Medical History: Renal Disease Medications and Allergies Home Medications Medication Instructions Recorded Confirmed Type Acetaminophen Tab [Tylenol] 500 - 1,000 mg PO Q6H PRN 12/20/20 12/20/20 History Aspirin EC [Ecotrin Low Dose] 81 mg PO AC-SUPPER 12/20/20 12/20/20 History Cetirizine HCl [Zyrtec] 10 mg PO AC-SUPPER 12/20/20 12/20/20 History Cholecalciferol (Vitamin D3) 125 mcg PO AC-SUPPER 12/20/20 12/20/20 History [Vitamin D3 (5000 Iu)] Clobetasol Propionate [Temovate 1 applic TOPICAL BID 12/20/20 12/20/20 History 0.05% Cream] Diclofenac Sodium [Voltaren Gel] 2 gram TOPICAL QID PRN 12/20/20 12/20/20 History Glucosam/Viet-Msm1/C/Ricci/Bosw 1 tab PO AC-BID@0900,1800 12/20/20 12/20/20 History [Glucosamine-Chondroitin Tablet] Metoprolol Tartrate [Lopressor] 100 mg PO BID 12/20/20 12/20/20 History Multivit-Min/FA/Lycopen/Lutein 1 tab PO AC-SUPPER 12/20/20 12/20/20 History [Centrum Silver Tablet] NIFEdipine [NIFEdipine ER] 30 mg PO AC-BRKFST 12/20/20 12/20/20 History Omeprazole [PriLOSEC] 20 mg PO AC-BID@0900,1600 12/20/20 12/20/20 History Phenytoin Sodium Extended 100 mg PO AC-BRKFST 12/20/20 12/20/20 History [Dilantin] Phenytoin Sodium Extended 200 mg PO HS 12/20/20 12/20/20 History [Dilantin] Primidone [Mysoline] 100 mg PO DAILY 12/20/20 12/20/20 History Primidone [Mysoline] 250 mg PO HS 12/20/20 12/20/20 History calcium polycarbophiL [Fibercon] 1,250 mg PO AC-SUPPER 12/20/20 12/20/20 History clonazePAM [Klonopin ODT Wafer] 0.25 mg PO BID 12/20/20 12/20/20 History levETIRAcetam [Keppra] 250 mg PO AC-BID@0900,1800 12/20/20 12/20/20 History polyethylene glycoL 3350 [Miralax] 17 gm PO AC-BRKFST 12/20/20 12/20/20 History Allergies Allergy/AdvReac Type Severity Reaction Status Date / Time azithromycin [From Zithromax] Allergy Unknown Verified 12/20/20 16:12 codeine Allergy Unknown Verified 12/20/20 16:12 Physical Exam Vitals: Vital Signs Temp Pulse Pulse Resp BP BP Pulse Ox 12/21/20 04:00 98.2 F 70 18 141/74 93 L 12/21/20 00:00 97.9 F 80 20 135/75 92 L 12/20/20 20:00 96.7 F L 69 18 141/97 94 L 12/20/20 17:27 96.7 F L 69 18 141/97 94 L 12/20/20 17:02 72 18 141/80 95 12/20/20 14:50 22 12/20/20 12:27 98.0 F 67 20 156/93 91 L Intake and Output 12/20/20 12/21/20 12/21/20 22:59 06:59 14:59 Intake Total 222 55.389 Balance 222 55.389 Intake: Intake, IV Titration 55.389 Amount Heparin Sod,Pork in 0.45% 55.389 NaCl 25,000 unit In 0.45 % NaCl 1 250ml.bag @ 12 UNITS/KG/HR 9.689 mls/hr IV .Q24H [facility] Rx#: [id number] Oral 222 Other: Voiding Method Toilet Toilet Diaper Diaper # Voids 1 1 # Bowel Movements 1 1 Weight 80.739 kg 83 kg Results 12/20/20 14:49 12/20/20 14:49 Cardiac Enzymes 12/20/20 12/20/20 12/20/20 Range/Units 14:49 14:49 18:41 AST 34 (17-59) U/L Lactate Dehydrogenase 568 (313-618) U/L Troponin I 0.065 H* 0.061 H* (0.000-0.034) ng/mL 12/20/20 Range/Units 20:52 AST (17-59) U/L Lactate Dehydrogenase (313-618) U/L Troponin I 0.048 H* (0.000-0.034) ng/mL Coagulation 12/20/20 12/20/20 Range/Units 14:49 22:42 PT 10.3 (9.0-12.0) sec APTT 22.8 63.0 H (22.0-30.0) sec CBC 12/20/20 Range/Units 14:49 WBC 6.5 (3.8-10.6) k/uL RBC 4.53 (4.30-5.90) m/uL Hgb 14.7 (13.0-17.5) gm/dL Hct 42.7 (39.0-53.0) % Plt Count 193 (150-450) k/uL Comprehensive Metabolic Panel 12/20/20 Range/Units 14:49 Sodium 137 (137-145) mmol/L Potassium 4.6 (3.5-5.1) mmol/L Chloride 97 L (98-107) mmol/L Carbon Dioxide 34 H (22-30) mmol/L BUN 17 (9-20) mg/dL Creatinine 0.85 (0.66-1.25) mg/dL Glucose 87 (74-99) mg/dL Calcium 9.0 (8.4-10.2) mg/dL AST 34 (17-59) U/L ALT 19 (4-49) U/L Alkaline Phosphatase 103 (38-126) U/L Total Protein 8.0 (6.3-8.2) g/dL Albumin 4.0 (3.5-5.0) g/dL Current Medications Generic Name Dose Route Start Last Admin Trade Name Freq PRN Reason Stop Dose Admin Acetaminophen 650 mg 12/20/20 17:20 Acetaminophen Tab 325 Mg Tab PO Q6HR PRN Mild Pain or Fever > 100.5 Aspirin 81 mg 12/21/20 17:30 Aspirin 81 Mg PO AC-SUPPER [facility] Calcium Polycarbophil 1,250 mg 12/21/20 17:30 Calcium Polycarbophil 625 Mg Tab PO AC-SUPPER [facility] Cholecalciferol 125 mcg 12/20/20 21:30 12/20/20 22:19 Cholecalciferol 25 Mcg (1000 Iu) Tablet PO 125 mcg AC-SUPPER [facility] Administration Clobetasol Propionate 1 applic 12/21/20 09:00 Clobetasol Prop 0.05% Cr 15gm TOPICAL BID [facility] Clonazepam 0.25 mg 12/20/20 21:30 12/20/20 22:20 Clonazepam 0.5 Mg Tab PO 0.25 mg BID [facility] Administration Diclofenac Sodium 2 gm 12/20/20 21:12 Diclofenac Sodium Gel 100 Gm Tube TOPICAL QID PRN Pain Heparin Sodium (Porcine) 0 unit 12/20/20 17:09 Heparin Sodium 1,000 Un/Ml (10ml Vl) IV PER PROTOCOL PRN Low PTT Protocol Heparin Sodium/Sodium Chloride 250 mls @ 9.689 mls/hr 12/20/20 17:15 12/20/20 23:52 25,000 unit/ Sodium Chloride IV 12 units/kg/hr .Q24H [facility] 9.689 mls/hr Titration Protocol 12 UNITS/KG/HR Levetiracetam 250 mg 12/21/20 09:00 Levetiracetam 250 Mg Tab PO AC-BID@0900,1800 [facility] Loratadine 10 mg 12/20/20 21:15 12/20/20 22:20 Loratadine 10 Mg Tab PO 10 mg AC-SUPPER [facility] Administration Metoprolol Tartrate 100 mg 12/20/20 21:30 12/20/20 22:19 Metoprolol Tartrate 50 Mg Tab PO 100 mg BID [facility] Administration Multivitamins 1 each 12/21/20 17:30 Multivitamins, Thera 1 Each Tab PO AC-SUPPER [facility] Naloxone HCl 0.2 mg 12/20/20 17:20 Naloxone 0.4 Mg/Ml 1 Ml Vial IV Q2M PRN Opioid Reversal Nifedipine 30 mg 12/21/20 07:30 12/21/20 06:53 Nifedipine Xl 30 Mg Tab.Er.24 PO 30 mg AC-BRKFST [facility] Administration Pantoprazole Sodium 40 mg 12/21/20 07:30 12/21/20 06:54 Pantoprazole 40 Mg Tablet PO 40 mg AC-BRKFST [facility] Administration Phenytoin Sodium 100 mg 12/21/20 07:30 12/21/20 06:53 Phenytoin Sodium Extended 100 Mg Cap PO 100 mg AC-BRKFST [facility] Administration Phenytoin Sodium 200 mg 12/20/20 21:30 12/20/20 22:20 Phenytoin Sodium Extended 100 Mg Cap PO 200 mg HS [facility] Administration Polyethylene Glycol 17 gm 12/21/20 07:30 12/21/20 06:54 Polyethylene Glycol 3350 17 Gm Powd.Pack PO 17 gm AC-BRKFST [facility] Administration Primidone 100 mg 12/21/20 09:00 Primidone 50 Mg Tab PO DAILY [facility] Primidone 250 mg 12/20/20 21:45 12/20/20 22:21 Primidone 250 Mg Tab PO 250 mg HS [facility] Administration Intake and Output 12/20/20 12/21/20 12/21/20 22:59 06:59 14:59 Intake Total 222 55.389 Balance 222 55.389 Intake: Intake, IV Titration 55.389 Amount Heparin Sod,Pork in 0.45% 55.389 NaCl 25,000 unit In 0.45 % NaCl 1 250ml.bag @ 12 UNITS/KG/HR 9.689 mls/hr IV .Q24H [facility] Rx#: [id number] Oral 222 Other: Voiding Method Toilet Toilet Diaper Diaper # Voids 1 1 # Bowel Movements 1 1 Weight 80.739 kg 83 kg 12/20/20 14:49 12/20/20 14:49
[2020-12-21 10:24] LABS: Partial Thromboplastin Time 73.6 sec (22.0-30.0); Prothrombin Time 11.1 sec (9.0-12.0)
--- NOTE | 2020-12-21 11:00 | ECHOF ---
Referral Reason:NSTEMI MEASUREMENTS -------- HEIGHT: 160.0 cm WEIGHT: 82.6 kg BP: 141/74 RVIDd: 1.8 cm (< 3.3) IVSd: 1.2 cm (0.6 - 1.1) LVIDd: 4.2 cm (3.9 - 5.3) LVPWd: 1.3 cm (0.6 - 1.1) IVSs: 1.9 cm LVIDs: 2.4 cm LVPWs: 1.9 cm Ao Diam: 2.8 cm (2.0 - 3.7) AV Cusp: 1.9 cm (1.5 - 2.6) LA Diam: 4.1 cm (2.7 - 3.8) MV EXCURSION: 12.148 mm (> 18.000) MV EF SLOPE: 68 mm/s (70 - 150) EPSS: 0.8 cm MV E Dionte: 0.51 m/s MV DecT: 187 ms MV A Dionte: 0.70 m/s MV E/A Ratio: 0.73 RAP: 5.00 mmHg RVSP: 9.13 mmHg FINDINGS -------- This was a technically difficult study with suboptimal views. The left ventricular size is normal. There is mild concentric left ventricular hypertrophy. Overa ll left ventricular systolic function is normal with, an EF between 55 - 60 %. The right ventricle is normal in size. The left atrial size is normal. The right atrial size is normal. xx ml of Lumason was utilized for enhancement of images. The aortic valve is trileaflet and appears structurally normal. The mitral valve is normal. There is trace mitral regurgitation. The tricuspid valve appears structurally normal. Trace tricuspid regurgitation present. Right alis tricular systolic pressure is normal at < 35 mmHg. There is no pulmonic regurgitation present. The aortic root size is normal. IVC Not well visulized. There is no pericardial effusion. CONCLUSIONS -------- 1. The left ventricular size is normal. 2. There is mild concentric left ventricular hypertrophy. 3. Overall left ventricular systolic function is normal with, an EF between 55 - 60 %. 4. There is trace mitral regurgitation. 5. Trace tricuspid regurgitation present. 6. There is no pericardial effusion. PIPE FITTER AMMONIA: Mechelle Mckeon RDCS
[2020-12-21 12:13] LABS: Ferritin 100.9 ng/mL (22.0-322.0)
[2020-12-21] MEDS: ATORVASTATIN 40 MG TAB PO SCH (12:29)
[2020-12-21] MEDS ORDERED: ALBUTEROL HFA INHALER INHALATION PRN (16:23)
[2020-12-21] MEDS ORDERED: ALBUTEROL HFA INHALER INHALATION SCH (16:26)
[2020-12-21] MEDS: ALBUTEROL HFA INHALER INHALATION SCH ×2 (17:08→20:12)
[2020-12-21] MEDS: ASPIRIN 81 MG PO SCH (17:30)
[2020-12-21] MEDS: CHOLECALCIFEROL 25 MCG (1000 IU) TABLET PO SCH (17:30)
[2020-12-21] MEDS: CEFDINIR 300 MG CAP PO SCH ×2 (17:30→23:43)
[2020-12-21] MEDS: MULTIVITAMINS, THERA 1 EACH TAB PO SCH (17:31)
[2020-12-21] MEDS: LORATADINE 10 MG TAB PO SCH (17:31)
--- NOTE | 2020-12-21 20:40 | P.HPIM ---
History of Present Illness H&P Date: 12/21/20 Chief Complaint: Cough History of presenting complaint: (This is a 75-year-old patient was consulted some developmental delay and history is updated with the sister the bedside. Patient lives at the [facility]. Chronic stable medical conditions include DVT, GERD, hypertension, prostatitis, seizure disorder, epilepsy. For 4 days patient had some shortness breath some laboring in breathing. Slight cough. Slight dragging of the chest. Patient has received his 2 dose of over 19 vaccine. Patient been eating okay. The sister had taken his pulse ox and thought it had dropped a bit. Hence he was brought into the hospital. Patient himself is a rather limited historian Review of systems: GEN.: None EYES: None HEENT: None NECK: None RESPIRATORY: As above CARDIOVASCULAR: None GASTROINTESTINAL: None GENITOURINARY: None MUSCULOSKELETAL: None LYMPHATICS: None HEMATOLOGICAL: None PSYCHIATRY: Mental impairment NEUROLOGICAL: None Past medical history to include: DVT, GERD, hypertension, myocardial infarction, osteoarthritis, seizure disorder, skin disorder, mental impairment, epilepsy Social history: Lives at [facility] living area and occasionally may use a walker. No smoking or alcohol. Patient's sister Maik is a legal guardian Physical examination: VITAL SIGNS: 98, 67, 20, 156.93, 91% on room air GENERAL: BMI 32.4, laying in bed, awake. EYES: Pupils equal. Conjunctiva normal. HEENT: External appearance of nose and ears normal, oral cavity grossly normal. NECK: JVD not raised; masses not palpable. HEART: First and second heart sounds are normal; no edema. LUNGS: Respiratory rate normal; fair air entry. ABDOMEN: Soft, nontender, liver spleen not palpable, no masses palpable. PSYCH: Patient does follow commands missing occasional wordsl. NEUROLOGICAL: Cranial nerves grossly intact; no facial asymmetry, power and sensation grossly intact. LYMPHATICS: No lymph nodes palpable in the axilla and neck INVESTIGATIONS, reviewed in the clinical context: WBC 6.5 hemoglobin 14.7 platelets 193 potassium 4.6 creatinine 0.85 Troponin I 0.065, 0.061, 0.048 proBNP 166 procalcitonin 0.07 Coronavirus [PCR]-not detected EKG tracing personally reviewed by me-normal sinus rhythm Chest x-ray film personally reviewed by me: No infiltrates CT chest: Evidence of PE. Bilateral lower lobe basilar atelectasis. Assessment and plan: -Positive troponin likely from mild myocarditis could be viral Follow clinically. Telemetry. 4 any arrhythmias -Possible viral pneumonitis/bronchitis We'll add Omnicef) cannot rule out a bacterial component -Chronic developmental delay -Obesity BMI 32.4 Weight loss measures and follow-up with PCP -GERD Continue with PPI -Essential hypertension Continue with Lopressor, nifedipine ER -Seizure disorder On Keppra and Dilantin Cardiology was consulted. Patient placed on telemetry. Put on Omnicef. DVT prophylaxis. Resume home medications. Discussed with assisted the bedside. Past Medical History Past Medical History: Deep Vein Thrombosis (DVT), GERD/Reflux, Hypertension, Memory Impairment, Myocardial Infarction (OR), Neurologic Disorder, Osteoarthritis (OA), Pneumonia, Seizure Disorder, Skin Disorder Additional Past Medical History / Comment(s): encephalitis. mental impairment. 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 Myocardial Infarction Date:: 2004 History of Any Multi-Drug Resistant Organisms: None Reported Past Surgical History: Appendectomy, Cholecystectomy Past Anesthesia/Blood Transfusion Reactions: No Reported Reaction Past Psychological History: No Psychological Hx Reported Smoking Status: Former smoker Past Alcohol Use History: None Reported Past Drug Use History: None Reported - Past Family History Mother Family Medical History: Cancer Father Family Medical History: Renal Disease Medications and Allergies Home Medications Medication Instructions Recorded Confirmed Type Acetaminophen Tab [Tylenol] 500 - 1,000 mg PO Q6H PRN 12/20/20 12/20/20 History Aspirin EC [Ecotrin Low Dose] 81 mg PO AC-SUPPER 12/20/20 12/20/20 History Cetirizine HCl [Zyrtec] 10 mg PO AC-SUPPER 12/20/20 12/20/20 History Cholecalciferol (Vitamin D3) 125 mcg PO AC-SUPPER 12/20/20 12/20/20 History [Vitamin D3 (5000 Iu)] Clobetasol Propionate [Temovate 1 applic TOPICAL BID 12/20/20 12/20/20 History 0.05% Cream] Diclofenac Sodium [Voltaren Gel] 2 gram TOPICAL QID PRN 12/20/20 12/20/20 History Glucosam/Viet-Msm1/C/Ricci/Bosw 1 tab PO AC-BID@0900,1800 12/20/20 12/20/20 History [Glucosamine-Chondroitin Tablet] Metoprolol Tartrate [Lopressor] 100 mg PO BID 12/20/20 12/20/20 History Multivit-Min/FA/Lycopen/Lutein 1 tab PO AC-SUPPER 12/20/20 12/20/20 History [Centrum Silver Tablet] NIFEdipine [NIFEdipine ER] 30 mg PO AC-BRKFST 12/20/20 12/20/20 History Omeprazole [PriLOSEC] 20 mg PO AC-BID@0900,1600 12/20/20 12/20/20 History Phenytoin Sodium Extended 100 mg PO AC-BRKFST 12/20/20 12/20/20 History [Dilantin] Phenytoin Sodium Extended 200 mg PO HS 12/20/20 12/20/20 History [Dilantin] Primidone [Mysoline] 100 mg PO DAILY 12/20/20 12/20/20 History Primidone [Mysoline] 250 mg PO HS 12/20/20 12/20/20 History calcium polycarbophiL [Fibercon] 1,250 mg PO AC-SUPPER 12/20/20 12/20/20 History clonazePAM [Klonopin ODT Wafer] 0.25 mg PO BID 12/20/20 12/20/20 History levETIRAcetam [Keppra] 250 mg PO AC-BID@0900,1800 12/20/20 12/20/20 History polyethylene glycoL 3350 [Miralax] 17 gm PO AC-BRKFST 12/20/20 12/20/20 History Allergies Allergy/AdvReac Type Severity Reaction Status Date / Time azithromycin [From Zithromax] Allergy Unknown Verified 12/20/20 16:12 codeine Allergy Unknown Verified 12/20/20 16:12 Physical Exam Vitals: Vital Signs Temp Pulse Pulse Resp BP BP Pulse Ox 12/21/20 08:00 97.2 F L 63 20 128/75 93 L 12/21/20 04:00 98.2 F 70 18 141/74 93 L 12/21/20 00:00 97.9 F 80 20 135/75 92 L 12/20/20 20:00 96.7 F L 69 18 141/97 94 L 12/20/20 17:27 96.7 F L 69 18 141/97 94 L 12/20/20 17:02 72 18 141/80 95 12/20/20 14:50 22 12/20/20 12:27 98.0 F 67 20 156/93 91 L Intake and Output 12/20/20 12/21/20 12/21/20 22:59 06:59 14:59 Intake Total 222 55.389 Balance 222 55.389 Intake: Intake, IV Titration 55.389 Amount Heparin Sod,Pork in 0.45% 55.389 NaCl 25,000 unit In 0.45 % NaCl 1 250ml.bag @ 12 UNITS/KG/HR 9.689 mls/hr IV .Q24H [facility] Rx#: [id number] Oral 222 Other: Voiding Method Toilet Toilet Diaper Diaper # Voids 1 1 # Bowel Movements 1 1 Weight 80.739 kg 83 kg Results CBC & Chem 7: 12/20/20 14:49 12/20/20 14:49 Labs: Abnormal Lab Results - Last 24 Hours (Table) 12/20/20 12/20/20 12/20/20 Range/Units 14:49 14:49 18:41 APTT (22.0-30.0) sec Chloride 97 L (98-107) mmol/L Carbon Dioxide 34 H (22-30) mmol/L POC Glucose (mg/dL) (75-99) mg/dL Troponin I 0.065 H* 0.061 H* (0.000-0.034) ng/mL C-Reactive Protein 41.6 H (<10.0) mg/L 12/20/20 12/20/20 12/21/20 Range/Units 20:52 22:42 00:24 APTT 63.0 H (22.0-30.0) sec Chloride (98-107) mmol/L Carbon Dioxide (22-30) mmol/L POC Glucose (mg/dL) 140 H (75-99) mg/dL Troponin I 0.048 H* (0.000-0.034) ng/mL C-Reactive Protein (<10.0) mg/L 12/21/20 Range/Units 09:32 APTT 73.6 H (22.0-30.0) sec Chloride (98-107) mmol/L Carbon Dioxide (22-30) mmol/L POC Glucose (mg/dL) (75-99) mg/dL Troponin I (0.000-0.034) ng/mL C-Reactive Protein (<10.0) mg/L Thrombosis Risk Factor Assmnt - Choose All That Apply Any of the Below Risk Factors Present?: Yes Each Factor Represents 1 point: Obesity (BMI >25) Other Risk Factors: Yes Each Risk Factor Represents 3 Points: Age 75 years or older, History of DVT/PE Thrombosis Risk Factor Assessment Total Risk Factor Score: 7 Thrombosis Risk Factor Assessment Level: High Risk
[2020-12-21] MEDS: PRIMIDONE 250 MG TAB PO SCH (22:01)
[2020-12-21] MEDS: HEPARIN SOD,PORK IN 0.45% NACL 25,000 UNIT in 0.45% NACL 1 250ML.BAG IV SCH (23:20)
[2020-12-22] MEDS: ALBUTEROL HFA INHALER INHALATION SCH ×6 (00:19→19:32)
[2020-12-22] MEDS: PHENYTOIN SODIUM EXTENDED 100 MG CAP PO SCH ×2 (06:58→21:12)
[2020-12-22] MEDS: NIFEdipine XL 30 MG TAB.ER.24 PO SCH (06:58)
[2020-12-22] MEDS: PANTOPRAZOLE 40 MG TABLET PO SCH (06:58)
[2020-12-22] MEDS: polyethylene glycoL 3350 17 GM POWD.PACK PO SCH (06:58)
[2020-12-22 08:39] LABS: African American GFR (CKD) >90 (>60 ml/min/1.73 sqM); Anion Gap 6 mmol/L; Blood Urea Nitrogen 17 mg/dL (9-20); Carbon Dioxide 31 mmol/L (22-30); Chloride 102 mmol/L (98-107); Glucose 103 mg/dL (74-99); Non-African American GFR(CKD) 89 (>60 ml/min/1.73 sqM); Potassium 4.3 mmol/L (3.5-5.1); Sodium 139 mmol/L (137-145)
[2020-12-22] MEDS: CEFDINIR 300 MG CAP PO SCH ×2 (09:37→21:12)
[2020-12-22] MEDS: ATORVASTATIN 40 MG TAB PO SCH (09:37)
[2020-12-22] MEDS: CLOBETASOL PROP 0.05% CR 15GM TOPICAL SCH ×2 (09:38→21:12)
[2020-12-22] MEDS: clonazePAM 0.5 MG TAB PO SCH ×2 (09:38→21:12)
[2020-12-22] MEDS: METOPROLOL TARTRATE 50 MG TAB PO SCH ×2 (09:39→21:12)
[2020-12-22] MEDS: PRIMIDONE 50 MG TAB PO SCH (09:39)
[2020-12-22] MEDS: levETIRAcetam 250 MG TAB PO SCH ×2 (09:39→18:31)
--- NOTE | 2020-12-22 12:08 | P.PN ---
Subjective This is a pleasant 75-year-old male past medical history significant for hypertension, dyslipidemia, myocardial infarction (date/year unknown) coronary artery disease s/p stent (details unknown), peripheral vascular disease, seizure (July 2020) . He currently does not follow with a sales and service change leader. He used to see Dr. Cowan. We have been asked to see in consultation for elevated troponin. Spoke to patient's sister, who is his legal gaurdian for more information. She states that yesterday, she noticed the patient's breathing becoming more labored and appeared short of breath. She has a pulse ox at home and said it read around 79%. She decided to bring her brother to the emergency department. EKG reveals sinus mechanism HR 59, No significant ST-T wave abnormalities. Chest xray new bilateral multifocal opacities. CT chest- Negative for PE. Bilateral lower love mild basilar density, Bilateral bronchial adenopathy greater on the right side. He did recieve both Moderna covid vaccines (09/27/20 and 10/26/20). Covid-19 PCR negative. troponin 0.065-->0.061-->0.048 12/22/20: Patient is seen and examined at bedside. Alert, in no apparent distress. Able to tell me he is in the hospital. Patient is a poor historian, unable to communicate complaints. Laboratory data reviewed, Sodum 139, K 4.3, Scr 0.78. CRP elevated Telemetry tracings indicate sinus mechanism HR 70s. Echocardiogram revealed EF 55-60%, trace MR, trace TR. PHYSICAL EXAMINATION Blood pressure 137/75 heart rate 79 afebrile and maintaining oxygen saturation 92% on 4 nasal cannula. CONSTITUTIONAL: No apparent distress. HEENT: Head is normocephalic. No JVD. No carotid bruit. CHEST EXAMINATION: Lungs are diminished bilateral bases to auscultation. HEART EXAMINATION: Regular rate and rhythm. S1, S2 heard. No murmurs, gallops or rub. ABDOMEN: Soft, nontender. Positive bowel sounds. EXTREMITIES: 2+ peripheral pulses, no lower extremity edema and no calf tenderness. NEUROLOGIC EXAMINATION: Patient is awake, alert, oriented x 1. ASSESSMENT Mildly elevated troponin- most likely related to a type II event related to patient's pneumonia, EKG with no evidence of ischemia, patient without any chest pain History of OR with prior stenting- details unknown Coronary artery disease History of Seizures Peripheral vascular disease Pneumonia Hypertension PLAN At this time we will proceed with conservative treatment and treat the patient medically Will discontinue heparin drip Will continue aspirin, statin, metoprolol tartrate 100mg BID, nifedipine 30mg daily. No further cardiac testing from cardiology perspective. We will follow the patient PRN at this time. Patient can follow up with Dr. Tristan outpatient. Nurse Practitioner note has been reviewed, I agree with a documented findings and plan of care. Patient was seen and examined. Objective - Vital Signs Vital signs: Vital Signs Temp 98.2 F 12/22/20 09:00 Pulse 79 12/22/20 09:00 Resp 16 12/22/20 09:00 BP 137/75 12/22/20 09:00 Pulse Ox 92 L 12/22/20 09:00 Intake & Output 12/21/20 12/22/20 12/22/20 18:59 06:59 18:59 Intake Total 657.256 88.355 300 Balance 657.256 88.355 300 Weight 73.5 kg Intake: IV 71 Heparin Sod,Pork in 0.45% 71 NaCl 25,000 unit In 0.45 % NaCl 1 250ml.bag @ 12 UNITS/KG/HR 9.689 mls/hr IV .Q24H [facility] Rx#: [id number] Intake, IV Titration 106.256 88.355 Amount Heparin Sod,Pork in 0.45% 106.256 88.355 NaCl 25,000 unit In 0.45 % NaCl 1 250ml.bag @ 12 UNITS/KG/HR 9.689 mls/hr IV .Q24H [facility] Rx#: [id number] Oral 480 300 Other: Voiding Method Toilet Diaper # Voids 0 # Bowel Movements 0 - Labs CBC & Chem 7: 12/20/20 14:49 12/22/20 07:17 Labs: Abnormal Lab Results - Last 24 Hours (Table) 12/21/20 12/22/20 12/22/20 Range/Units 17:55 07:17 07:17 APTT 49.1 H 57.0 H (22.0-30.0) sec Carbon Dioxide 31 H (22-30) mmol/L Glucose 103 H (74-99) mg/dL Microbiology - Last 24 Hours (Table) 12/20/20 14:49 Blood Culture - Preliminary Blood No Growth after 24 hours 12/20/20 14:49 Blood Culture - Preliminary Blood No Growth after 24 hours
[2020-12-22] MEDS: CHOLECALCIFEROL 25 MCG (1000 IU) TABLET PO SCH (18:30)
[2020-12-22] MEDS: LORATADINE 10 MG TAB PO SCH (18:30)
[2020-12-22] MEDS: MULTIVITAMINS, THERA 1 EACH TAB PO SCH (18:30)
[2020-12-22] MEDS: ASPIRIN 81 MG PO SCH (18:31)
[2020-12-22] MEDS: PRIMIDONE 250 MG TAB PO SCH (21:57)
--- NOTE | 2020-12-22 23:01 | P.PN ---
Progress Note - Text Progress Note Date: 12/22/20 Chief Complaint: Cough History of presenting complaint: (This is a 75-year-old patient was consulted some developmental delay and history is updated with the sister the bedside. Patient lives at the [facility] living. Chronic stable medical conditions include DVT, GERD, hypertension, prostatitis, seizure disorder, epilepsy. For 4 days patient had some shortness breath some laboring in breathing. Slight cough. Slight dragging of the chest. Patient has received his 2 dose of over 19 vaccine. Patient been eating okay. The sister had taken his pulse ox and thought it had dropped a bit. Hence he was brought into the hospital. Patient himself is a r ather limited historian Admitted with COPD, acute bronchitis and troponin leak likely viral. Today: Sitting up. Eating better. Sister at the bedside. Patient will be requiring oxygen Review of systems: Was done for constitutional, cardiovascular, GI, pulmonary. relevant finding as above Active Medications Acetaminophen (Acetaminophen Tab 325 Mg Tab) 650 mg PO Q6HR PRN PRN Reason: Mild Pain or Fever > 100.5 Last Admin: 12/22/20 22:24 Dose: 650 mg Documented by: Albuterol Sulfate (Albuterol Hfa Inhaler) 4 puff INHALATION RT-Q4H [facility] Last Admin: 12/22/20 19:32 Dose: 4 puff Documented by: Aspirin (Aspirin 81 Mg) 81 mg PO AC-SUPPER [facility] Last Admin: 12/22/20 18:31 Dose: 81 mg Documented by: Atorvastatin Calcium (Atorvastatin 40 Mg Tab) 40 mg PO DAILY [facility] Last Admin: 12/22/20 09:37 Dose: 40 mg Documented by: Calcium Polycarbophil (Calcium Polycarbophil 625 Mg Tab) 1,250 mg PO AC-SUPPER [facility] Last Admin: 12/22/20 18:30 Dose: 1,250 mg Documented by: Cefdinir (Cefdinir 300 Mg Cap) 300 mg PO BID [facility] Last Admin: 12/22/20 21:12 Dose: 300 mg Documented by: Cholecalciferol (Cholecalciferol 25 Mcg (1000 Iu) Tablet) 125 mcg PO AC-SUPPER [facility] Last Admin: 12/22/20 18:30 Dose: 125 mcg Documented by: Clobetasol Propionate (Clobetasol Prop 0.05% Cr 15gm) 1 applic TOPICAL BID [facility] Last Admin: 12/22/20 21:12 Dose: 1 applic Documented by: Clonazepam (Clonazepam 0.5 Mg Tab) 0.25 mg PO BID [facility] Last Admin: 12/22/20 21:12 Dose: 0.25 mg Documented by: Diclofenac Sodium (Diclofenac Sodium Gel 100 Gm Tube) 2 gm TOPICAL QID PRN PRN Reason: Pain Heparin Sodium (Porcine) (Heparin Sodium 1,000 Un/Ml (10ml Vl)) 0 unit IV PER PROTOCOL PRN; Protocol PRN Reason: Low PTT Levetiracetam (Levetiracetam 250 Mg Tab) 250 mg PO AC-BID@0900,1800 [facility] Last Admin: 12/22/20 18:31 Dose: 250 mg Documented by: Loratadine (Loratadine 10 Mg Tab) 10 mg PO AC-SUPPER [facility] Last Admin: 12/22/20 18:30 Dose: 10 mg Documented by: Metoprolol Tartrate (Metoprolol Tartrate 50 Mg Tab) 100 mg PO BID [facility] Last Admin: 12/22/20 21:12 Dose: 100 mg Documented by: Multivitamins (Multivitamins, Thera 1 Each Tab) 1 each PO AC-SUPPER [facility] Last Admin: 12/22/20 18:30 Dose: 1 each Documented by: Naloxone HCl (Naloxone 0.4 Mg/Ml 1 Ml Vial) 0.2 mg IV Q2M PRN PRN Reason: Opioid Reversal Nifedipine (Nifedipine Xl 30 Mg Tab.Er.24) 30 mg PO AC-BRKFST [facility] Last Admin: 12/22/20 06:58 Dose: 30 mg Documented by: Pantoprazole Sodium (Pantoprazole 40 Mg Tablet) 40 mg PO AC-KFST [facility] Last Admin: 12/22/20 06:58 Dose: 40 mg Documented by: Phenytoin Sodium (Phenytoin Sodium Extended 100 Mg Cap) 100 mg PO AC-BRKFST [facility] Last Admin: 12/22/20 06:58 Dose: 100 mg Documented by: Phenytoin Sodium (Phenytoin Sodium Extended 100 Mg Cap) 200 mg PO [facility] Last Admin: 12/22/20 21:12 Dose: 200 mg Documented by: Polyethylene Glycol (Polyethylene Glycol 3350 17 Gm Powd.Pack) 17 gm PO AC- BRKFST [facility] Last Admin: 12/22/20 06:58 Dose: 17 gm Documented by: Primidone (Primidone 50 Mg Tab) 100 mg PO DAILY [facility] Last Admin: 12/22/20 09:39 Dose: 100 mg Documented by: Primidone (Primidone 250 Mg Tab) 250 mg PO HS [facility] Last Admin: 12/22/20 21:57 Dose: 250 mg Documented by: Active Medications Acetaminophen (Acetaminophen Tab 325 Mg Tab) 650 mg PO Q6HR PRN PRN Reason: Mild Pain or Fever > 100.5 Last Admin: 12/22/20 22:24 Dose: 650 mg Documented by: Albuterol Sulfate (Albuterol Hfa Inhaler) 4 puff INHALATION RT-Q4H [facility] Last Admin: 12/22/20 19:32 Dose: 4 puff Documented by: Aspirin (Aspirin 81 Mg) 81 mg PO AC-SUPPER [facility] Last Admin: 12/22/20 18:31 Dose: 81 mg Documented by: Atorvastatin Calcium (Atorvastatin 40 Mg Tab) 40 mg PO DAILY [facility] Last Admin: 12/22/20 09:37 Dose: 40 mg Documented by: Calcium Polycarbophil (Calcium Polycarbophil 625 Mg Tab) 1,250 mg PO AC-SUPPER [facility] Last Admin: 12/22/20 18:30 Dose: 1,250 mg Documented by: Cefdinir (Cefdinir 300 Mg Cap) 300 mg PO BID [facility] Last Admin: 12/22/20 21:12 Dose: 300 mg Documented by: Cholecalciferol (Cholecalciferol 25 Mcg (1000 Iu) Tablet) 125 mcg PO AC-SUPPER [facility] Last Admin: 12/22/20 18:30 Dose: 125 mcg Documented by: Clobetasol Propionate (Clobetasol Prop 0.05% Cr 15gm) 1 applic TOPICAL BID [facility] Last Admin: 12/22/20 21:12 Dose: 1 applic Documented by: Clonazepam (Clonazepam 0.5 Mg Tab) 0.25 mg PO BID [facility] Last Admin: 12/22/20 21:12 Dose: 0.25 mg Documented by: Diclofenac Sodium (Diclofenac Sodium Gel 100 Gm Tube) 2 gm TOPICAL QID PRN PRN Reason: Pain Heparin Sodium (Porcine) (Heparin Sodium 1,000 Un/Ml (10ml Vl)) 0 unit IV PER PROTOCOL PRN; Protocol PRN Reason: Low PTT Levetiracetam (Levetiracetam 250 Mg Tab) 250 mg PO AC-BID@0900,1800 [facility] Last Admin: 12/22/20 18:31 Dose: 250 mg Documented by: Loratadine (Loratadine 10 Mg Tab) 10 mg PO AC-SUPPER [facility] Last Admin: 12/22/20 18:30 Dose: 10 mg Documented by: Metoprolol Tartrate (Metoprolol Tartrate 50 Mg Tab) 100 mg PO BID [facility] Last Admin: 12/22/20 21:12 Dose: 100 mg Documented by: Multivitamins (Multivitamins, Thera 1 Each Tab) [facility] Admin: 12/22/20 18:30 Dose: 1 each Documented by: Naloxone HCl (Naloxone 0.4 Mg/Ml 1 Ml Vial) 0.2 mg IV Q2M PRN PRN Reason: Opioid Reversal Nifedipine (Nifedipine Xl 30 Mg Tab.Er.24) 30 mg PO [facility] Last Admin: 12/22/20 06:58 Dose: 30 mg Documented by: Pantoprazole Sodium (Pantoprazole 40 Mg Tablet) 40 mg PO [facility] Last Admin: 12/22/20 06:58 Dose: 40 mg Documented by: Phenytoin Sodium (Phenytoin Sodium Extended 100 Mg Cap) 100 mg PO -[facility] Last Admin: 12/22/20 06:58 Dose: 100 mg Documented by: Phenytoin Sodium (Phenytoin Sodium Extended 100 Mg Cap) 200 mg PO [facility] Last Admin: 12/22/20 21:12 Dose: 200 mg Documented by: Polyethylene Glycol (Polyethylene Glycol 3350 17 Gm Powd.Pack) 17 gm PO [facility] Last Admin: 12/22/20 06:58 Dose: 17 gm Documented by: Primidone (Primidone 50 Mg Tab) 100 mg PO DAILY [facility] Last Admin: 12/22/20 09:39 Dose: 100 mg Documented by: Primidone (Primidone 250 Mg Tab) 250 mg PO [facility] Last Admin: 12/22/20 21:57 Dose: 250 mg Documented by: Past medical history to include: DVT, GERD, hypertension, myocardial infarction, osteoarthritis, seizure disorder, skin disorder, mental impairment, epilepsy Social history: Lives at [facility] living [facility] and occasionally may use a walker. No smoking or alcohol. Patient's sister Maik is a legal guardian Physical examination: VITAL SIGNS: 98.1, 70, 16, 140/75, 92% on 4 L GENERAL: Sitting of regimen bed, eating EYES: Pupils equal. Conjunctiva normal. HEENT: External appearance of nose and ears normal, oral cavity grossly normal. NECK: JVD not raised; masses not palpable. HEART: First and second heart sounds are normal; no edema. LUNGS: Respiratory rate normal; decreased breath sounds ABDOMEN: Soft, nontender, liver spleen not palpable, no masses palpable. PSYCH: Patient does follow commands missing occasional wordsl. NEUROLOGICAL: Cranial nerves grossly intact; no facial asymmetry, power and sensation grossly intact. Chronic dysarthria INVESTIGATIONS, reviewed in the clinical context: December 22: Potassium 4.3 creatinine 0.78 WBC 6.5 hemoglobin 14.7 platelets 193 potassium 4.6 creatinine 0.85 Troponin I 0.065, 0.061, 0.048 proBNP 166 procalcitonin 0.07 Coronavirus [PCR]-not detected EKG tracing personally reviewed by me-normal sinus rhythm Chest x-ray film personally reviewed by me: No infiltrates CT chest: Evidence of PE. Bilateral lower lobe basilar atelectasis. Assessment and plan: -Acute COPD exacerbation in a nonsmoker Bronchodilators and steroids -Acute hypoxic respiratory failure Patient requiring oxygen -Positive troponin likely from mild myocarditis could be viral Follow clinically. Telemetry. 4 any arrhythmias -Possible viral pneumonitis/bronchitis We'll add Omnicef) cannot rule out a bacterial component -Chronic developmental delay -Obesity BMI 32.4 Weight loss measures and follow-up with PCP -GERD Continue with PPI -Essential hypertension Continue with Lopressor, nifedipine ER -Seizure disorder On Keppra and Dilantin Patient be put on DuoNeb, in his steroids. Arrange for home oxygen. Hopefully discharge tomorrow.
[2020-12-22 23:57] VITALS: RESP 18
[2020-12-23] MEDS: ALBUTEROL HFA INHALER INHALATION SCH ×3 (06:13→07:25)
[2020-12-23] MEDS: polyethylene glycoL 3350 17 GM POWD.PACK PO SCH (06:31)
[2020-12-23] MEDS: PHENYTOIN SODIUM EXTENDED 100 MG CAP PO SCH (06:31)
[2020-12-23] MEDS: PANTOPRAZOLE 40 MG TABLET PO SCH (06:31)
[2020-12-23] MEDS: NIFEdipine XL 30 MG TAB.ER.24 PO SCH (06:31)
[2020-12-23] MEDS: IPRATROPIUM-ALBUTEROL 3 ML NEB INHALATION SCH ×2 (07:24→10:46)
[2020-12-23] MEDS ORDERED: BUDESONIDE 1 MG/2 ML NEBU INHALATION SCH (08:00)
[2020-12-23] MEDS: PRIMIDONE 50 MG TAB PO SCH (09:58)
[2020-12-23] MEDS: CEFDINIR 300 MG CAP PO SCH (09:58)
[2020-12-23] MEDS: METOPROLOL TARTRATE 50 MG TAB PO SCH (09:58)
[2020-12-23] MEDS: clonazePAM 0.5 MG TAB PO SCH (09:59)
[2020-12-23] MEDS: levETIRAcetam 250 MG TAB PO SCH (10:01)
[2020-12-23] MEDS: ATORVASTATIN 40 MG TAB PO SCH (10:01)
[2020-12-23] MEDS: CLOBETASOL PROP 0.05% CR 15GM TOPICAL SCH (10:02)
[2020-12-23 10:06] VITALS: BP 133/70; PULSE 73; TEMP 97.8
[2020-12-23] MEDS: guaiFENesin 600 MG TABLET.ER PO SCH ×2 (14:20→14:21)
--- NOTE | 2020-12-24 | P.DS ---
Providers Date of admission: 12/20/20 17:20 Expected date of discharge: 12/23/20 Attending physician: Gary Ni Consults: 12/20/20 17:21 Consult Physician Routine Consulting Provider: Jeyson Hightower Consult Reason/Comments: trop elevated Do you want consulting provider notified?: Yes Primary care physician: [facility] Course: Chief Complaint: Cough History of presenting complaint: (This is a 75-year-old patient was consulted some developmental delay and history is updated with the sister the bedside. Patient lives at the [facility]. Chronic stable medical conditions include DVT, GERD, hypertension, prostatitis, seizure disorder, epilepsy. For 4 days patient had some shortness breath some laboring in breathing. Slight cough. Slight dragging of the chest. Patient has received his 2 dose of over 19 vaccine. Patient been eating okay. The sister had taken his pulse ox and thought it had dropped a bit. Hence he was brought into the hospital. Patient himself is a rather limited historian Admitted with COPD exacerbation, acute bronchitis and troponin leak likely viral. Responded well. Acute hypoxic respiratory failure, requiring oxygen. Seen by cardiology. No further intervention Today:-Sitting up. Comfortable. Home oxygen being arranged. Patient be discharged home on nebulizers. Discussed with vocational case manager. Discussion and discharge planning more than 35 minutes Consultation: Cardiology associates Past medical history to include: DVT, GERD, hypertension, myocardial infarction, osteoarthritis, seizure disorder, skin disorder, mental impairment, epilepsy Social history: Lives at [facility] area and occasionally may use a walker. No smoking or alcohol. Patient's sister Maik is a legal guardian Physical examination: VITAL SIGNS: 97.8, 73, 16, 133 was 70, 87% on room air GENERAL: Sitting at the edge of the bed, comfortable EYES: Pupils equal. Conjunctiva normal. HEENT: External appearance of nose and ears normal, oral cavity grossly normal. NECK: JVD not raised; masses not palpable. HEART: First and second heart sounds are normal; no edema. LUNGS: Respiratory rate normal; decreased breath sounds ABDOMEN: Soft, nontender, liver spleen not palpable, no masses palpable. PSYCH: Patient does follow commands missing occasional wordsl. NEUROLOGICAL: Cranial nerves grossly intact; no facial asymmetry, power and sensation grossly intact. Chronic dysarthria INVESTIGATIONS, reviewed in the clinical context: December 22: Potassium 4.3 creatinine 0.78 WBC 6.5 hemoglobin 14.7 platelets 193 potassium 4.6 creatinine 0.85 Troponin I 0.065, 0.061, 0.048 proBNP 166 procalcitonin 0.07 Coronavirus [PCR]-not detected EKG tracing personally reviewed by me-normal sinus rhythm Chest x-ray film personally reviewed by me: No infiltrates CT chest: Evidence of PE. Bilateral lower lobe basilar atelectasis. Assessment and plan: -Acute COPD exacerbation in a nonsmoker Bronchodilators and steroids. DC home with nebulizer -Acute hypoxic respiratory failure, secondary to COPD Patient requiring oxygen. 87% on room air -Positive troponin likely from mild myocarditis could be viral Follow clinically. Telemetry. -Possible viral pneumonitis/bronchitis We'll add Omnicef) cannot rule out a bacterial component -Chronic developmental delay -Obesity BMI 32.4 Weight loss measures and follow-up with PCP -GERD Continue with PPI -Essential hypertension Continue with Lopressor, nifedipine ER -Seizure disorder On Keppra and Dilantin Disposition: Home Patient Condition at Discharge: Stable Plan - Discharge Summary Discharge Rx Participant: No New Discharge Prescriptions: New Cefuroxime Axetil [Ceftin] 500 mg PO BID #10 tab predniSONE 10 mg PO DAILY #30 tab Atorvastatin [Lipitor] 40 mg PO DAILY #30 tab Albuterol Inhaler [Ventolin Hfa Inhaler] 2 puff INHALATION TID #1 puff Ipratropium-Albuterol Nebulize [Duoneb 0.5 mg-3 mg/3 ml Soln] 3 ml INHALATION TID #90 ml guaiFENesin [Mucinex] 600 mg PO Q12HR #60 tablet.er Continue polyethylene glycoL 3350 [Miralax] 17 gm PO AC-BRKFST Glucosam/Viet-Msm1/C/Ricci/Bosw [Glucosamine-Chondroitin Tablet] 1 tab PO AC- BID@0900,1800 Omeprazole [PriLOSEC] 20 mg PO AC-BID@0900,1600 clonazePAM [Klonopin ODT Wafer] 0.25 mg PO BID Metoprolol Tartrate [Lopressor] 100 mg PO BID Clobetasol Propionate [Temovate 0.05% Cream] 1 applic TOPICAL BID Acetaminophen Tab [Tylenol] 500 - 1,000 mg PO Q6H PRN PRN Reason: Fever And/ Or Pain calcium polycarbophiL [Fibercon] 1,250 mg PO AC-SUPPER Multivit-Min/FA/Lycopen/Lutein [Centrum Silver Tablet] 1 tab PO AC-SUPPER NIFEdipine [NIFEdipine ER] 30 mg PO AC-BRKFST Primidone [Mysoline] 100 mg PO DAILY Phenytoin Sodium Extended [Dilantin] 100 mg PO AC-BRKFST levETIRAcetam [Keppra] 250 mg PO AC-BID@0900,1800 Diclofenac Sodium [Voltaren Gel] 2 gram TOPICAL QID PRN PRN Reason: Pain Cetirizine HCl [Zyrtec] 10 mg PO AC-SUPPER Aspirin EC [Ecotrin Low Dose] 81 mg PO AC-SUPPER Cholecalciferol (Vitamin D3) [Vitamin D3 (5000 Iu)] 125 mcg PO AC-SUPPER Primidone [Mysoline] 250 mg PO HS Phenytoin Sodium Extended [Dilantin] 200 mg PO HS Discharge Medication List Acetaminophen Tab [Tylenol] 500 - 1,000 mg PO Q6H PRN 12/20/20 [History] Aspirin EC [Ecotrin Low Dose] 81 mg PO AC-SUPPER 12/20/20 [History] Cetirizine HCl [Zyrtec] 10 mg PO AC-SUPPER 12/20/20 [History] Cholecalciferol (Vitamin D3) [Vitamin D3 (5000 Iu)] 125 mcg PO AC-SUPPER 12/20/20 [History] Clobetasol Propionate [Temovate 0.05% Cream] 1 applic TOPICAL BID 12/20/20 [History] Diclofenac Sodium [Voltaren Gel] 2 gram TOPICAL QID PRN 12/20/20 [History] Glucosam/Viet-Msm1/C/Ricci/Bosw [Glucosamine-Chondroitin Tablet] 1 tab PO AC- BID@0900,1800 12/20/20 [History] Metoprolol Tartrate [Lopressor] 100 mg PO BID 12/20/20 [History] Multivit-Min/FA/Lycopen/Lutein [Centrum Silver Tablet] 1 tab PO AC-SUPPER 12/20/20 [History] NIFEdipine [NIFEdipine ER] 30 mg PO AC-BRKFST 12/20/20 [History] Omeprazole [PriLOSEC] 20 mg PO AC-BID@0900,1600 12/20/20 [History] Phenytoin Sodium Extended [Dilantin] 100 mg PO AC-BRKFST 12/20/20 [History] Phenytoin Sodium Extended [Dilantin] 200 mg PO HS 12/20/20 [History] Primidone [Mysoline] 100 mg PO DAILY 12/20/20 [History] Primidone [Mysoline] 250 mg PO HS 12/20/20 [History] calcium polycarbophiL [Fibercon] 1,250 mg PO AC-SUPPER 12/20/20 [History] clonazePAM [Klonopin ODT Wafer] 0.25 mg PO BID 12/20/20 [History] levETIRAcetam [Keppra] 250 mg PO AC-BID@0900,1800 12/20/20 [History] polyethylene glycoL 3350 [Miralax] 17 gm PO AC-BRKFST 12/20/20 [History] Albuterol Inhaler [Ventolin Hfa Inhaler] 2 puff INHALATION TID #1 puff 12/22/20 [Rx] Atorvastatin [Lipitor] 40 mg PO DAILY #30 tab 12/22/20 [Rx] Cefuroxime Axetil [Ceftin] 500 mg PO BID #10 tab 12/22/20 [Rx] predniSONE 10 mg PO DAILY #30 tab 12/22/20 [Rx] Ipratropium-Albuterol Nebulize [Duoneb 0.5 mg-3 mg/3 ml Soln] 3 ml INHALATION TID #90 ml 12/23/20 [Rx] guaiFENesin [Mucinex] 600 mg PO Q12HR #60 tablet.er 12/23/20 [Rx] Follow up Appointment(s)/Referral(s): Jose Tristan MD [STAFF PHYSICIAN] - 01/05/21 3:00 pm (Friday [facility]) [facility],Equipment [NON-STAFF] - (*Please call [facility] once home to arrange delivery of oxygen concentrator. ) Jd Feliz MD [Primary Care Provider] - 1-2 days (Office is closed. Please all to schedule appointment) Jeff Castanon DO [Doctor of Osteopathic Medicine] - 2 Weeks (Office is closed. Please call to schedule appointment) Patient Instructions/Handouts: COPD (Chronic Obstructive Pulmonary Disease) (DC), Hypoxia (GEN) Discharge Disposition: HOME SELF-CARE
== END 2020-12-23 15:31 | disposition home or self-care (01) | DRG 193 ==
LOC: EC 11:56 → 3SCARD 17:20
PROVIDERS: ADMIT Hospitalist; ATTEND Hospitalist
DX: J12.9 Viral pneumonia, unspecified (principal); I40.0 Infective myocarditis; J96.01 Acute respiratory failure with hypoxia; J44.0 Chronic obstructive pulmonary disease with (acute) lower respiratory infection; J44.1 Chronic obstructive pulmonary disease with (acute) exacerbation; J20.9 Acute bronchitis, unspecified; E66.9 Obesity, unspecified; Z20.822 Contact with and (suspected) exposure to COVID-19; F17.210 Nicotine dependence, cigarettes, uncomplicated; G40.909 Epilepsy, unspecified, not intractable, without status epilepticus; I10 Essential (primary) hypertension; R79.89 Other specified abnormal findings of blood chemistry; I25.10 Atherosclerotic heart disease of native coronary artery without angina pectoris; I25.2 Old myocardial infarction; I73.9 Peripheral vascular disease, unspecified; K21.9 Gastro-esophageal reflux disease without esophagitis; N41.9 Inflammatory disease of prostate, unspecified; Z68.32 Body mass index [BMI] 32.0-32.9, adult; Z79.82 Long term (current) use of aspirin; Z79.899 Other long term (current) drug therapy; Z86.61 Personal history of infections of the central nervous system; Z87.01 Personal history of pneumonia (recurrent); Z90.49 Acquired absence of other specified parts of digestive tract; Z71.3 Dietary counseling and surveillance; Z88.1 Allergy status to other antibiotic agents; Z88.5 Allergy status to narcotic agent; Z86.718 Personal history of other venous thrombosis and embolism
CPT/HCPCS: 36415; 71045; 71275; 80048; 80053; 82728; 83605; 83615; 83735; 83880; 84145; 84484; 85025; 85610; 85730; 86140; 87040; 87635; 93005; 93306; 94640; 99285

== ENCOUNTER → 2021-02-06 | Outpatient (CLI) | payer MEDICARE, OTHER ==
[2021-02-06 17:13] LABS: African American GFR (CKD) 101.3 (60.0-200.0); BUN/Creat Ratio 17.5 Ratio (12.00-20.00); Calcium 8.5 mg/dL (8.7-10.3); Non-African American GFR(CKD) 87.4 (60.0-200.0); Potassium 4.4 mmol/L (3.5-5.5)
== END | disposition home or self-care (01) ==
LOC: LABWHC1 08:14
PROVIDERS: ATTEND Family Medicine
DX: G40.909 Epilepsy, unspecified, not intractable, without status epilepticus (principal)
CPT/HCPCS: 36415; 80048; 80184; 80185; 80188

== ENCOUNTER → 2021-05-21 | Outpatient (CLI) | payer MEDICARE, OTHER ==
[2021-05-21 11:08] LABS: African American GFR (CKD) 96.5 (60.0-200.0); Albumin 3.9 g/dL (3.80-4.90); Albumin/Globulin Ratio 1.15 (1.60-3.17); Anion Gap 6.4 mmol/L (4.00-12.00); BUN/Creat Ratio 17.78 Ratio (12.00-20.00); Carbon Dioxide 32.6 mmol/L (21.6-31.8); Globulin 3.4 g/dL (1.6-3.3); Non-African American GFR(CKD) 83.3 (60.0-200.0); Potassium 4.6 mmol/L (3.5-5.5); Total Bilirubin 0.2 mg/dL (0.2-1.2); Total Protein 7.3 g/dL (6.2-8.2)
[2021-05-21 11:17] LABS: Phenytoin (Dilantin) 11.5 ug/mL (10.0-20.0)
[2021-05-21 11:26] LABS: HCT 41.7 % (39.6-50.0); HGB 13.2 g/dL (13.0-17.0); MCH 31.3 pg (27.0-32.0); MCHC 31.7 g/dL (32.0-37.0); MCV 98.8 fL (80.0-97.0); Platelet Count 204 X 10*3/uL (140-440); RBC 4.22 X 10*6/uL (4.40-5.60); RDW 13.3 % (11.5-14.5); WBC 7.36 X 10*3/uL (4.50-10.00)
[2021-05-22 06:53] LABS: Levetiracetam (Keppra) 4.7 ug/mL (3.0-60.0)
[2021-05-22 12:07] LABS: Primidone 6.6 ug/mL (4-12)
== END | disposition home or self-care (01) ==
LOC: LABWHC1 07:47
PROVIDERS: ATTEND Psychiatry & Neurology Clinical Neurophysiology
DX: Z51.81 Encounter for therapeutic drug level monitoring (principal); G40.419 Other generalized epilepsy and epileptic syndromes, intractable, without status epilepticus; D64.9 Anemia, unspecified
CPT/HCPCS: 36415; 80053; 80177; 80185; 80188; 85027

== ENCOUNTER → 2021-08-14 | Outpatient (CLI) | payer MEDICARE, OTHER ==
[2021-08-15 09:40] LABS: Primidone 5.5 ug/mL (4-12)
== END | disposition home or self-care (01) ==
LOC: LABWHC1 08:07
PROVIDERS: ATTEND Physician Assistant Medical
DX: G40.909 Epilepsy, unspecified, not intractable, without status epilepticus (principal)
CPT/HCPCS: 36415; 80177; 80185; 80188

== ENCOUNTER → 2021-11-20 | Outpatient (CLI) | payer MEDICARE, OTHER ==
[2021-11-20 14:59] LABS: Basophils # (A) 0.06 X 10*3/uL (0.00-0.10); Basophils % (A) 0.6 %; Eosinophils # (A) 0.88 X 10*3/uL (0.04-0.35); HCT 43.1 % (39.6-50.0); HGB 13.3 g/dL (13.0-17.0); Immature Grans, Automated 0.2 %; Lymphocytes # (A) 3.36 X 10*3/uL (0.90-5.00); Lymphocytes % (A) 34.4 %; MCH 30.7 pg (27.0-32.0); MCHC 30.9 g/dL (32.0-37.0); MCV 99.5 fL (80.0-97.0); Mean Platelet Volume 10.5 fL (9.5-12.2); Monocytes # (A) 0.97 X 10*3/uL (0.20-1.00); Monocytes % (A) 9.9 %; NRBC Per 100 WBC 0 /100 WBCS (0.0-0.0); Neutrophils # (A) 4.48 X 10*3/uL (1.80-7.70); Neutrophils % (A) 45.9 %; Platelet Count 242 X 10*3/uL (140-440); RBC 4.33 X 10*6/uL (4.40-5.60); RDW 13.2 % (11.5-14.5); WBC 9.77 X 10*3/uL (4.50-10.00)
[2021-11-20 16:31] LABS: African American GFR (CKD) 100.6 (60.0-200.0); Albumin 3.8 g/dL (3.8-4.9); Albumin/Globulin Ratio 1.06 (1.60-3.17); Anion Gap 12.7 mmol/L (10.00-18.00); BUN/Creat Ratio 18.75 Ratio (12.00-20.00); Calcium 8.9 mg/dL (8.7-10.3); Carbon Dioxide 29.3 mmol/L (20.0-27.5); Globulin 3.6 g/dL (1.6-3.3); Non-African American GFR(CKD) 86.8 (60.0-200.0); Potassium 4.5 mmol/L (3.5-5.5); Total Bilirubin 0.3 mg/dL (0.30-1.20); Total Protein 7.4 g/dL (6.2-8.2)
[2021-11-20 19:17] LABS: Phenytoin (Dilantin) 9.1 ug/mL (10.0-20.0)
[2021-11-21 07:43] LABS: Levetiracetam (Keppra) 3.7 ug/mL (3.0-60.0)
[2021-11-21 09:20] LABS: Primidone 6.4 ug/mL (4-12)
== END | disposition home or self-care (01) ==
LOC: LABWHC1 08:19
PROVIDERS: ATTEND Psychiatry & Neurology Clinical Neurophysiology
DX: Z51.81 Encounter for therapeutic drug level monitoring (principal); G83.84 Todd's paralysis (postepileptic); D64.9 Anemia, unspecified
CPT/HCPCS: 36415; 80053; 80177; 80185; 80188; 85025

== ENCOUNTER → 2022-02-02 | Outpatient (CLI) | payer MEDICARE, OTHER ==
[2022-02-02 23:18] LABS: African American GFR (CKD) 95.4 (60.0-200.0); Albumin 3.9 g/dL (3.8-4.9); BUN/Creat Ratio 14.62 Ratio (12.00-20.00); Blood Urea Nitrogen 13.2 mg/dL (9.0-27.0); Carbon Dioxide 28.7 mmol/L (20.0-27.5); Chloride 102 mmol/L (96-109); Chol/HDL Ratio 2.58 Ratio; Glucose 87 mg/dL (70-110); LDL Cholesterol,Calculated 62.5 mg/dL (0.0-131.0); Non-African American GFR(CKD) 82.3 (60.0-200.0); Phosphorus 3.5 mg/dL (2.4-5.1); Potassium 4.5 mmol/L (3.5-5.5); Sodium 141 mmol/L (135-145)
== END | disposition home or self-care (01) ==
LOC: LABWHC1 08:48
PROVIDERS: ATTEND Physician Assistant Medical
DX: Z13.220 Encounter for screening for lipoid disorders (principal); Z13.1 Encounter for screening for diabetes mellitus; G40.909 Epilepsy, unspecified, not intractable, without status epilepticus
CPT/HCPCS: 36415; 80061; 80069; 80188; 83036

== ENCOUNTER → 2022-05-18 | Outpatient (CLI) | payer MEDICARE, OTHER ==
[2022-05-18 11:32] LABS: HGB 12.8 g/dL (13.0-17.0); MCH 31.2 pg (27.0-32.0); MCHC 32.8 g/dL (32.0-37.0); MCV 95.1 fL (80.0-97.0); Mean Platelet Volume 10.5 fL (9.5-12.2); NRBC Per 100 WBC 0 /100 WBCS (0.0-0.0); Platelet Count 297 X 10*3/uL (140-440); RDW 13.2 % (11.5-14.5); WBC 7.74 X 10*3/uL (4.50-10.00)
[2022-05-18 11:38] LABS: Phenytoin (Dilantin) 6.5 ug/mL (10.0-20.0)
[2022-05-18 11:54] LABS: African American GFR (CKD) 100.6 (60.0-200.0); Albumin 3.6 g/dL (3.8-4.9); Albumin/Globulin Ratio 0.97 (1.60-3.17); Calcium 8.8 mg/dL (8.7-10.3); Globulin 3.7 g/dL (1.6-3.3); Non-African American GFR(CKD) 86.8 (60.0-200.0); Potassium 4.7 mmol/L (3.5-5.5); Total Bilirubin 0.2 mg/dL (0.30-1.20); Total Protein 7.3 g/dL (6.2-8.2)
[2022-05-20 07:20] LABS: Levetiracetam (Keppra) 4.3 ug/mL (3.0-60.0)
[2022-05-20 15:34] LABS: Primidone 6.1 ug/mL (4-12)
== END | disposition home or self-care (01) ==
LOC: LABWHC1 08:45
PROVIDERS: ATTEND Psychiatry & Neurology Clinical Neurophysiology
DX: Z51.81 Encounter for therapeutic drug level monitoring (principal); G83.84 Todd's paralysis (postepileptic); D64.9 Anemia, unspecified
CPT/HCPCS: 36415; 80053; 80177; 80185; 80188; 85027

== ENCOUNTER → 2022-08-14 | Outpatient (CLI) | payer MEDICARE, OTHER ==
[2022-08-14 17:28] LABS: African American GFR (CKD) 97.1 (60.0-200.0); Albumin 3.9 g/dL (3.8-4.9); Anion Gap 10.6 mmol/L (10.00-18.00); BUN/Creat Ratio 17.11 Ratio (12.00-20.00); Blood Urea Nitrogen 14.9 mg/dL (9.0-27.0); Calcium 9.2 mg/dL (8.7-10.3); Carbon Dioxide 29.4 mmol/L (20.0-27.5); Non-African American GFR(CKD) 83.8 (60.0-200.0); Phosphorus 3.8 mg/dL (2.4-5.1); Potassium 4.8 mmol/L (3.5-5.5)
== END | disposition home or self-care (01) ==
LOC: LABWHC1 08:07
PROVIDERS: ATTEND Family Medicine
DX: G40.909 Epilepsy, unspecified, not intractable, without status epilepticus (principal)
CPT/HCPCS: 36415; 80069; 80185; 80188

== ENCOUNTER → 2022-11-18 | Outpatient (CLI) | payer MEDICARE, OTHER ==
[2022-11-18 14:13] LABS: HCT 42.2 % (39.6-50.0); HGB 13.1 g/dL (13.0-17.0); MCH 30.6 pg (27.0-32.0); MCV 98.6 fL (80.0-97.0); NRBC Per 100 WBC 0 /100 WBCS (0.0-0.0); Platelet Count 238 X 10*3/uL (140-440); RBC 4.28 X 10*6/uL (4.40-5.60); RDW 13.7 % (11.5-14.5); WBC 6.57 X 10*3/uL (4.50-10.00)
[2022-11-18 14:27] LABS: African American GFR (CKD) 99.9 (60.0-200.0); Anion Gap 10.6 mmol/L (10.00-18.00); Blood Urea Nitrogen 14.4 mg/dL (9.0-27.0); Calcium 9.1 mg/dL (8.7-10.3); Carbon Dioxide 29.4 mmol/L (20.0-27.5); Non-African American GFR(CKD) 86.2 (60.0-200.0); Phenytoin (Dilantin) 10.5 ug/mL (10.0-20.0); Potassium 4.3 mmol/L (3.5-5.5); Total Bilirubin 0.2 mg/dL (0.30-1.20)
[2022-11-19 07:13] LABS: Levetiracetam (Keppra) 3.7 ug/mL (3.0-60.0)
== END | disposition home or self-care (01) ==
LOC: LABWHC1 08:34
PROVIDERS: ATTEND Psychiatry & Neurology Neurology
DX: Z51.81 Encounter for therapeutic drug level monitoring (principal)
CPT/HCPCS: 36415; 80053; 80177; 80184; 80185; 80188; 85027